=== PATIENT | male | born 1980 | race Caucasian/White ===

== ENCOUNTER 2022-09-23 08:04 | Outpatient (OUT) | payer OTHER, BC, SELFPAY ==
--- NOTE | 2022-09-23 08:16 | CT_ITS ---
[address] [address] Patient Name: MALLORY BRENNAN MRN: [id number] date: 1980 Sex: M Assigned Patient Location: CT Current Patient Location: CT Accession/Order Number: [id number] Exam Date: 09/23/2022 08:20 Report Date: 09/23/2022 08:57 At the request of: NON-STAFF PHYSICIAN Procedure: CT lumbar spine wo con EXAMINATION: CT lumbar spine wo con HISTORY: Lumbar Radiculopathy M54.16, Degenerative Disc Disease M51.9 COMPARISON: No relevant comparison available. TECHNIQUE: Axial, Coronal, and Sagittal CT images were created without I.V. contrast material. Dose reduction techniques were achieved by using automated exposure control and/or adjustment of mA and/or kV according to patient size and/or use of iterative reconstruction technique. FINDINGS: PARASPINAL AREA: Normal with no visible mass. Bilateral nonobstructing nephrolithiasis BONES: Normal alignment with no acute fracture or spondylolisthesis. Minimal degenerative spondylosis. DISC LEVELS: 12-L1: No significant disc/facet abnormality, spinal stenosis, or foraminal stenosis. L1-L2: No significant disc/facet abnormality, spinal stenosis, or foraminal stenosis. L2-L3: No significant disc/facet abnormality, spinal stenosis, or foraminal stenosis. L3-L4: No significant disc/facet abnormality, spinal stenosis, or foraminal stenosis. L4-L5: No significant disc/facet abnormality, spinal stenosis, or foraminal stenosis. L5-S1: moderate disc space narrowing. Posterior broad-based disc herniation the protrusion type extending 3.7 mm. No central or foraminal stenosis CT/CT lumbar spine wo con IMPRESSION: Broad-based disc herniation the protrusion type at L5-S1. No definite central or foraminal stenosis Electronically authenticated by: BERNADINE FISHER Date: 09/23/2022 08:57
--- NOTE | 2022-09-23 08:20 | XR_ITS ---
The [address] [address] Patient Name: MALLORY BRENNAN MRN: [id number] date: 1980 Sex: M Assigned Patient Location: CT Current Patient Location: CT Accession/Order Number: [id number] Exam Date: 09/23/2022 08:27 Report Date: 09/23/2022 08:58 At the request of: NON-STAFF PHYSICIAN Procedure: XR lumbar spine 2-3V EXAMINATION: XR lumbar spine 2-3V HISTORY: Lumbar Radiculopathy M54.18, Degenerative Disc Disease M51.9 COMPARISON: No relevant comparison available. FINDINGS: BONES: Neutral projection demonstrates normal alignment with no acute fracture or spondylolisthesis. Mild degenerative spondylosis DISC SPACES: Disc space narrowing L5-S1 PARASPINOUS: Negative. No paraspinous abnormality is seen. OTHER: No transient spondylolisthesis with flexion or extension XR/XR lumbar spine 2-3V IMPRESSION: Disc space narrowing L5-S1 with no dynamic instability Electronically authenticated by: BERNADINE FISHER Date: 09/23/2022 08:58
== END 2022-09-23 08:05 | disposition home or self-care (01) ==
LOC: CT 08:06
PROVIDERS: PCP Family Medicine
DX: M54.16 Radiculopathy, lumbar region (principal); M51.9 Unspecified thoracic, thoracolumbar and lumbosacral intervertebral disc disorder; M51.26 Other intervertebral disc displacement, lumbar region
CPT/HCPCS: 72100; 72131

== ENCOUNTER 2022-11-04 08:23 | Outpatient (OUT) | payer OTHER, BC, SELFPAY ==
--- NOTE | 2022-11-04 08:56 | PM.CN ---
Consult Note: HPI Data of Consult Patient: known to practice within the last 3 years Requesting Physician: KYE FRAGA NP Primary Care Provider: Landon Borden MD Consult Narrative Reason for consult: low back, right buttock/thigh pain Narrative: Wilton Davila a pleasant 42 year old male presents for follow up on chronic low back pain with right sided radiculopathy. Patient stopped taking baclofen felt it was not beneficial and made him feel groggy. Patient has benefited from ESIs in the past and feels it is still beneficial at this time but may be wearing off. 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 Today pain is 2/10 in low back, right buttock, and right upper leg. cc:: CC: KYE FRAGA NP Review of Systems ROS Status of ROS 10 or more systems reviewed and unremarkable except as noted in history and below Musculoskeletal Reports: back pain and other (muscle spasms) Exam Constitutional Documenting provider has reviewed patient's vital signs: yes Common normals: no apparent distress, oriented x3, healthy appearing, alert and well nourished General appearance: cooperative HENRI Common normals: normocephalic, hearing grossly normal bilaterally and moist oral mucous membranes Head and scalp: normocephalic Eye Common normals: PERRL Pupil: PERRL Neck & C-Spine Common normals: full ROM General: normal visual inspection Chest Common normals: inspection of chest normal Respiratory Common normals: normal respiratory effort, no retractions and no use of accessory muscles Back & Pelvis Lumbar spine/lower back: pain with ROM, lumbar spinal tenderness and straight leg raise positive right Sacroiliac joints: SI joint(s) abnormal (tenderness to Right SIJ, positive DENIS and thigh thrust) Extremity Common normals: normal to inspection and full ROM Neuro Common normals: oriented x3, CN's II-XII intact bilaterally, moves all extremities, no focal motor deficits, no sensory deficits noted, deep tendon reflexes 2+ bilaterally and gait normal Sensorium/orientation: alert Motor exam: strength 5/5 throughout and no movement abnormalities noted Psych Common normals: mental status grossly normal, thought process normal, cooperative, affect normal, speech normal and activity/motor behavior normal Speech: normal speech Thought process: normal thought process Results Additional Findings Additional findings: I have checked an [facility] report on this patient today and there are no aberrancies noted in the prescribing history.?? A drug screen was completed and reviewed within the last year, and if there has not been a drug screen completed we ordered one today to monitor higher risk, state monitored pain medication use. As part of providing excellent, safe, comprehensive care, the following was completed at our patient's visit: 1. A medication reconciliation and review to ensure accurate knowledge of current/active medications, including asking our patients to inform us about any [id number] medications or herbal remedies/nutritional supplements/alternative remedies. 2. A review to specifically ensure our patients have had annual screening for: elevated body mass index (BMI), tobacco use, screening for depression, and screening for unhealthy alcohol use. When screening is concerning, patients are provided with education and the specific recommendation to discuss the concerning health issue and treatment options with their primary care provider. Assessment and Plan Assessment and Plan (1) Lumbar radiculopathy: (2) Muscle spasm: Plan followed with neurosurgeon, thought he could benefit from surgery patient not interested at this time declining alternative muscle relaxant declining topical cream declining TENS f/u in 3 months, call sooner if would like to repeat lumbar l5/s1 KRUPA for lumbar radiculopathy
== END 2022-11-04 08:24 | disposition home or self-care (01) ==
PROVIDERS: PCP Family Medicine; Visit Provider Nurse Practitioner
DX: M54.16 Radiculopathy, lumbar region (principal); M62.838 Other muscle spasm
CPT/HCPCS: G0463

== ENCOUNTER 2023-07-28 16:16 | Outpatient (OUT) | payer OTHER, SELFPAY ==
[2023-07-28 16:52] LABS: Basophils Absolute Auto 0.1 10^3/uL (0.0-0.1); Basophils Percent Auto 0.9 % (0.2-2.0); Eosinophils Absolute Auto 0.1 10^3/uL (0.0-0.7); Eosinophils Percent Auto 1.9 % (0.9-7.0); Hematocrit 45.2 % (42.0-54.0); Hemoglobin 15.5 g/dL (14.0-18.0); Immature Granulocytes Abs Auto 0.01 10^3/uL (0.00-0.03); Immature Granulocytes Pct Auto 0.2 % (0.0-0.5); Lymphocytes Absolute Auto 2.3 10^3/uL (1.2-3.8); Lymphocytes Percent Auto 35.4 % (20.5-60.0); Mean Corpuscular HGB Conc 34.3 g/dL (29.9-35.2); Mean Corpuscular Hemoglobin 30.5 pg (25.9-34.0); Mean Corpuscular Volume 88.8 fL (80.0-94.0); Mean Platelet Volume 10.2 fL (9.5-13.5); Monocytes Absolute Auto 0.7 10^3/uL (0.3-0.8); Monocytes Percent Auto 10.7 % (1.7-12.0); Neutrophils Absolute Auto 3.3 10^3/uL (1.4-6.5); Neutrophils Percent Auto 50.9 % (43.0-75.0); Platelet Count 256 10^3/uL (150-450); Red Blood Count 5.09 10^6/uL (4.70-6.10); Red Cell Distribution Width 12.8 % (11.0-15.0); White Blood Count 6.4 10^3/uL (4.0-11.0)
[2023-07-28 17:13] LABS: Alanine Aminotransferase 67 U/L (16-63); Albumin Globulin Ratio 1.1; Albumin Level 3.9 g/dL (3.4-5.0); Alkaline Phosphatase 57 U/L (46-116); Anion Gap 15.1; Aspartate Amino Transferase 25 U/L (15-37); BUN Creatinine Ratio 24.3; Bilirubin Direct 0.1 mg/dL (0.0-0.2); Bilirubin Total 0.4 mg/dL (0.2-1.0); Calcium 9.3 mg/dL (8.5-10.1); Carbon Dioxide 25.8 mmol/L (21.0-32.0); Chloride 102 mmol/L (98-107); Chol HDL Ratio 4.6; Cholesterol 232 mg/dL (<=200); Estimated Average Glucose 105 mg/dL; Estimated GFR (African America >60 (>=60); Estimated GFR (Non-African Ame >60 (>=60); Globulin 3.6 g/dL; Glucose 90 mg/dL (74-106); Glycohemoglobin A1C 5.3 % (4.5-6.2); HDL Cholesterol 50 mg/dL (40-60); Potassium 3.9 mmol/L (3.5-5.1); Sodium 139 mmol/L (136-145); Thyroid Stimulating Hormone 4.357 uIU/mL (0.358-3.740); Total Protein 7.5 g/dL (6.4-8.2); Triglycerides 120 mg/dL (<=150)
[2023-07-28 18:02] LABS: Prostate Specific Antigen Scrn 0.51 ng/mL (<=4.00)
[2023-07-30 03:09] LABS: Testosterone 560 ng/dL (264-916)
== END 2023-07-28 16:17 | disposition home or self-care (01) ==
LOC: LAB 16:18
PROVIDERS: PCP Family Medicine; Visit Provider Family Medicine
DX: Z00.00 Encounter for general adult medical examination without abnormal findings (principal)
CPT/HCPCS: 36415; 80048; 80061; 80076; 83036; 84403; 84443; 85025; G0103

== ENCOUNTER 2024-05-03 15:08 | Outpatient (OUT) | payer BC, SELFPAY ==
--- OUTSIDE RECORDS SUMMARY | 2024-05-03 15:30 | XMS_ITS | CCD ---
Author Organization [facility] Care Team Providers Care Programming Instructor Name Role Phone Diaz Bowser Admitting Unavailable Diaz Bowser Attending Unavailable NADERELANDON Luna Referring Unavailable NADERECheryl, LANDON Primary Care Unavailable KRISTELMARISELA DE LA CRUZ Attending Unavailable SHANIA VARGAS Referring Unavailable NADERER, LANDON Primary Care Unavailable AHMED, ENOC Admitting Unavailable NADERER, DR LANDON Paris Attending Unavailable NADERER, DR LANDON Paris Primary Care Unavailable NADERER, DR LANDON Paris Admitting Unavailable LAKSHMIPATHY ., NARENDRANATH Attending Brianna vailable LAKSHMIPATHY ., NARENDRANATH Admitting Brianna vailable NADERECheryl, DR LANDON Paris Primary Care Unavailable NADERER, DR LANDON Paris Primary Care Unavailable LAKSHMIPATHY ., NARENDRANATH Admitting Brianna vailable LAKSHMIPATHY ., NARENDRANATH Consulting Brianna vailable LAKSHMIPATHY ., NARENDRANATH Attending Brianna vailable LAKSHMIPATHY ., NARENDRANATH Consulting Brianna vailable LAKSHMIPATHY ., NARENDRANATH Attending Brianna vailable LAKSHMIPATHY ., NARENDRANATH Admitting Brianna vailable NADERER, DR LANDON Paris Primary Care Unavailable LAKSHMIPATHY ., NARENDRANATH Consulting Brianna vailable LAKSHMIPATHY ., NARENDRANATH Attending Brianna vailable LAKSHMIPATHY ., NARENDRANATH Admitting Brianna vailable NADERER, DR LANDON Paris Primary Care Unavailable NADERECheryl, DR LANDON Paris Primary Care Unavailable LAKSHMIPATHY ., NARENDRANATH Admitting Brianna vailable LAKSHMIPATHY ., NARENDRANATH Consulting Brianna vailable LAKSHMIPATHY ., NARENDMOODY Attending Brianna vailable NADERECheryl, DR LANDON Paris Primary Care Unavailable PAY ., DR MELVIN Consulting Unavailable PAY ., DR MELVIN Attending Unavailable PAY ., DR MELVIN Admitting Unavailable NADERER, DR LANDON Paris Primary Care Unavailable NADERER, DR LANDON Paris Admitting Unavailable NADERER, DR LANDON aPris Attending Unavailable NADERER, DR LANDON Paris Primary Care Unavailable NADERER, DR LANDON Paris Attending Unavailable NADERER, DR LANDON Paris Admitting Unavailable NADERER, DR LANDON Paris Primary Care Unavailable KAROLYN, DIAZ Consulting Unavailable KAROLYN, DIAZ Attending Unavailable KAROLYN, DIAZ Admitting Unavailable NADERER, DR LANDON Paris Primary Care Unavailable NADERER, DR LANDON Paris Consulting Unavailable NADERER, DR LANDON Paris Attending Unavailable NADERER, DR LANDON Paris Admitting Unavailable NADERER, DR LANDON Paris Primary Care Unavailable NADERER, DR LANDON Paris Attending Unavailable NADERER, DR LANDON Paris Admitting Unavailable ZIEBER, DR HOWARD Luna Consulting Unavailable NADERER, DR LANDON Paris Consulting Unavailable NADERER, DR LANDON Paris Primary Care Unavailable NADERER, DR LANDON Paris Admitting Unavailable NADERER, DR LANDON Paris Attending Unavailable MARS HILL, BERNADINE Consulting Unavailable NADERER, DR LANDON Paris Consulting Unavailable Carolynn Hernandez Unavailable Landon Galvez MD Primary Care Unavail able Ickes PA-C, Shasta Murillo Attending Unav ailable Landon Galvez MD Primary Care Unavail able Ickes PA-C, Shasta Murillo Attending Unav ailable Ickes PA-C, Shasta Murillo Attending Unav ailable Suha BLAKE, Landon Limon Primary Care Unavail able MD Landon Galvez Primary Care Provider DO Rodo Prado Emergency Provider Suha BLAKE, Landon Primary Care Provider SHANIA STOUT Attending Unavailable PROVIDER, CONVERSION Primary Care Unavailable SHANIA STOUT Attending Unavailable PROVIDER, CONVERSION Primary Care Unavailable SHANIA STOUT Attending Unavailable PROVIDER, CONVERSION Primary Care Unavailable Rodo Prado Attending Unavailable Suha, Landon Primary Care Unavailable Rodo Prado Admitting Unavailable Emory Rodriguez Admitting Unavailab le Emory Rodriguez Attending Unavailab le EstelitaereLandon luna Primary Care Unavailable KAROLYN, DIAZ Referring Unavailable KOURTNEY, KIKA Referring Unavailable KAROLYN, DIAZ Referring Unavailable KOURTNEY, KIKA Referring Unavailable KOURTNEY, KIKA Referring Unavailable KOURTNEY, KIKA Referring Unavailable KOURTNEY, KIKA Referring Unavailable KOURTNEY, KIKA Referring Unavailable KOURTNEY, KIKA Referring Unavailable KAROLYN, DIAZ Referring Unavailable KAROLYN, DIAZ Referring Unavailable KAROLYN, DIAZ Referring Unavailable KAROLYN, DIAZ Referring Unavailable KAROLYN, DIAZ Referring Unavailable NADERER, LANDON Attending Unavailable NADERER, LANDON Attending Unavailable NADERER, LANDON Attending Unavailable NADERER, LANDON Attending Unavailable Allergies Allergy Classification Reported Allergen(s) Allergy Type Date of Onset Reaction(s) Facility (1 source) No Known Medication Allergies; Translations: [No Known Medication Allergies] Propensity to adverse reactions to drug (disorder) [facility] Repository Medications Current Medications Medication Drug Class(es) Dates Sig (Normalized) Sig (Original) acetaminophen 325 mg / butalbital 50 mg / caffeine 40 mg oral tablet (18 sources) Barbiturate, Central Nervous System Stimulant, Methylxanthine Start: 05-25-2023 take 1 tablet by mouth every six hours for headache butalbital-acetam inophen-caffeine 50-325-40 MG tablet Indications: Migraine without aura and without status migrainosus, not intractable (CMS/HCC) Take 1 tablet by mouth every 6 (six) hours if needed for headaches 30 tablet 1 05/25/2023 Active acetaminophen 325 mg / HYDROcodone bitartrate 10 mg oral tablet (11 sources) Opioid Agonist Start: 04-11-2024 End: 04-26-2024 take 1 tablet by mouth four times daily as needed for pain HYDROcodone-aceta minophen ([place]) 10-325 MG tablet Indications: DDD (degenerative disc disease), lumbar Take 1 tablet by mouth 4 (four) times a day as needed for severe pain for up to 15 days 60 tablet 04/11/2024 04/26/2024 Active Start: 03-12-2024 End: 03-29-2024 take 1 tablet by mouth four times daily as needed for pain HYDROcodone-acetaminophen ([place]) 10-325 MG tablet Indications: DDD (degenerative disc disease), lumbar Take 1 tablet by mouth 4 (four) times a day as needed for severe pain for up to 15 days 60 tablet 03/12/2024 03/29/2024 Active Start: 02-09-2024 End: 02-16-2024 take 1 tablet by mouth four times daily as needed for pain HYDROcodone-acetaminophen ([place]) 10-325 MG tablet Indications: DDD (degenerative disc disease), lumbar Take 1 tablet by mouth 4 (four) times a day as needed for severe pain for up to 7 days 28 tablet 02/09/2024 02/16/2024 Active Start: 01-10-2024 End: 01-17-2024 take 1 tablet by mouth four times daily as needed for pain HYDROcodone-acetaminophen ([place]) 10-325 MG tablet Indications: DDD (degenerative disc disease), lumbar Take 1 tablet by mouth 4 (four) times a day as needed for severe pain for up to 7 days 28 tablet 01/10/2024 01/17/2024 Active Start: 12-02-2023 End: 12-09-2023 take 1 tablet by mouth four times daily as needed for pain HYDROcodone-acetaminophen ([place]) 10-325 MG tablet Indications: DDD (degenerative disc disease), lumbar Take 1 tablet by mouth 4 (four) times a day as needed for severe pain for up to 7 days 28 tablet 12/02/2023 12/09/2023 Active Start: 11-01-2023 End: 11-08-2023 take 1 tablet by mouth four times daily as needed for pain HYDROcodone-acetaminophen ([place]) 10-325 MG tablet Indications: DDD (degenerative disc disease), lumbar Take 1 tablet by mouth 4 (four) times a day as needed for severe pain for up to 7 days 28 tablet 11/01/2023 11/08/2023 Active ALPRAZolam 0.5 mg oral tablet (10 sources) Benzodiazepine Start: 04-30-2024 End: 05-10-2024 take 1 tablet by mouth three times daily as needed for anxiety ALPRAZolam (Xanax) 0.5 MG tablet Indications: Generalized anxiety disorder (CMS/HCC) Take 1 tablet (0.5 mg) by mouth 3 (three) times a day as needed for anxiety for up to 10 days 30 tablet 04/30/2024 05/10/2024 Active Start: 03-29-2024 End: 04-30-2024 take 1 tablet by mouth three times daily as needed for anxiety ALPRAZolam (Xanax) 0.25 MG tablet Indications: Generalized anxiety disorder (CMS/HCC) Take 1 tablet (0.25 mg) by mouth 3 (three) times a day as needed for anxiety for up to 10 days 30 tablet 03/29/2024 04/30/2024 Discontinued (Reorder) azithromycin 250 mg oral tablet (8 sources) Macrolide Antimicrobial Start: 03-29-2024 End: 04-30-2024 take 2 tablets by mouth once daily azithromycin (Zithromax) 250 MG tablet Indications: Acute bronchitis due to other specified organisms 2 PO once a day on day #1, then 1 PO daily on days 2-5 6 tablet 03/29/2024 04/30/2024 Discontinued 24 hr buPROPion hydrochloride 300 mg extended release oral tablet (16 sources) Aminoketone Start: 03-23-2024 take 1 tablet by mouth once daily buPROPion XL (Wellbutrin XL) 300 MG 24 hr tablet Indications: Major depressive disorder, recurrent episode, moderate (CMS/HCC) Take 1 tablet (300 mg) by mouth Daily Do not crush, chew, or split. 30 tablet 5 03/23/2024 Active Start: 12-13-2023 End: 03-23-2024 take 1 tablet by mouth once daily buPROPion XL (Wellbutrin XL) 150 MG 24 hr tablet Indications: Major depressive disorder, recurrent episode, moderate (CMS/HCC) Take 1 tablet (150 mg) by mouth Daily Do not crush, chew, or split. 30 tablet 3 12/13/2023 03/23/2024 Discontinued (Reorder) levothyroxine sodium 0.075 mg oral tablet (20 sources) l-Thyroxine Start: 07-28-2023 End: 03-12-2024 take 1 tablet by mouth before mealtime levothyroxine (Synthroid) 75 MCG tablet Indications: Adult hypothyroidism (CMS/HCC) Take 1 tablet (75 mcg) by mouth in the morning. Take before meals. 30 tablet 3 03/12/2024 Active mirtazapine 30 mg oral tablet (10 sources) Start: 01-17-2024 End: 04-30-2024 take 1 tablet by mouth at bedtime mirtazapine (Remeron) 30 MG tablet Take 30 mg by mouth at bedtime 01/17/2024 04/30/2024 Discontinued omeprazole 40 mg delayed release oral capsule (19 sources) Proton Pump Inhibitor Start: 03-15-2023 take 1 capsule by mouth once daily omeprazole (PriLOSEC) [address] capsule Indications: Gastroesophageal reflux disease without esophagitis TAKE 1 CAPSULE BY MOUTH EVERY DAY 90 capsule 3 03/15/2023 Active take 1 capsule by mouth once isaias ly Omeprazole 40 MG 1 capsule 30 minutes before morning meal Orally Once a day Active sertraline 25 mg oral tablet (4 sources) Serotonin Reuptake Inhibitor Start: 07-28-2023 End: 12-13-2023 take 1 tablet by mouth once daily sertraline (Zoloft) 25 MG tablet Indications: Generalized anxiety disorder (CMS/HCC) TAKE ONE TABLET BY MOUTH DAILY 30 tablet 2 07/28/2023 12/13/2023 Discontinued 1 ml testosterone cypionate 200 mg/ml injection (20 sources) Androgen Start: 10-06-2023 End: 03-08-2024 inject 0.5 mL by intramuscular injection every other week testosterone cypionate (Depo-Testosterone) 200 MG/ML injection Indications: Testicular hypofunction INJECT 0.5ML INTRAMUSCULARLY ONCE EVERY 2 WEEKS 2 mL 2 03/08/2024 Active traZODone hydrochloride 100 mg oral tablet (19 sources) Serotonin Reuptake Inhibitor Start: 03-19-2024 take 1 tablet by mouth once daily at bedtime traZODone (Desyrel) 100 MG tablet Indications: Primary insomnia TAKE 1 TABLET BY MOUTH EVERYDAY AT BEDTIME 90 tablet 3 03/19/2024 Active Start: 02-17-2023 take 1 tablet by zully th once daily at bedtime traZODone (Desyrel) 100 MG tablet Indications: Primary insomnia TAKE 1 TABLET BY MOUTH EVERYDAY AT BEDTIME 90 tablet 3 02/17/2023 Active take 1 tablet by zully th once daily at bedtime traZODone HCl 100 MG TAKE 1 TABLET BY MOUTH EVERYDAY AT BEDTIME Oral for 90 Days Active valACYclovir 1000 mg oral tablet (19 sources) Herpesvirus Nucleoside Analog DNA Polymerase Inhibitor, Herpes Simplex Virus Nucleoside Analog DNA Polymerase Inhibitor, Herpes Zoster Virus Nucleoside Analog DNA Polymerase Inhibitor Start: 06-14-2023 take 1 tablet by mouth once daily valACYclovir (Valtrex) 1 g tablet Indications: Herpesviral infection of other male genital organs , Genital herpes TAKE 1 TABLET BY MOUTH EVERY DAY 90 tablet 3 06/14/2023 Active valACYclovir HCl 1 GM Oral for 90 Days Active Completed/Discontinued Medications Medication Drug Class(es) Dates Sig (Normalized) Sig (Original) hydrOXYzine hydrochloride 25 mg oral tablet (15 sources) Antihistamine End: 03-29-2024 take 1 tablet by mouth four times daily as needed hydrOXYzine HCl (Atarax) 25 MG tablet TAKE 1 TABLET BY MOUTH FOUR TIMES A DAY NEEDED 03/29/2024 Discontinued take 1 tablet by zully th every twenty-four hours hydrOXYzine HCl 25 MG 1 tablet at bedtim e as needed Orally Once a day Active Problems Active Problems Problem Classification Problem Date Documented Date Episodic/Chronic Acute bronchitis (9 sources) Acute infective bronchitis; Translations: [Acute bronchitis due to other specified organisms] Onset: 03-29-2024 Resolved: 04-30-2024 03-29-2024 Episodic Anxiety disorders (20 sources) Generalized anxiety disorder; Translations: [Generalized anxiety disorder] Onset: 07-05-2023 07-05-2023 Chronic Cardiac dysrhythmias (20 sources) Unspecified atrial fibrillation; Translations: [Paroxysmal atrial fibrillation] Onset: 02-10-2022 07-05-2023 Chronic Disorders of lipid metabolism (18 sources) Dyslipidemia; Translations: [Hyperlipidemia, unspecified] Onset: 07-05-2023 07-05-2023 Chronic Esophageal disorders (19 sources) Gastro-esophageal reflux disease without esophagitis; Translations: [Gastroesophageal reflux disease without esophagitis] Onset: 02-10-2022 07-05-2023 Chronic Headache; including migraine (18 sources) Migraine without aura, not refractory ; Translations: [Migraine without aura, not intractable, without status migrainosus] Onset: 05-25-2023 05-25-2023 Chronic Mood disorders (20 sources) Moderate recurrent major depression; Translations: [Major depressive disorder, recurrent, moderate] Onset: 07-05-2023 12-13-2023 Chronic Nutritional deficiencies (18 sources) Vitamin D deficiency; Translations: [Vitamin D deficiency, unspecified] Onset: 07-05-2023 07-05-2023 Chronic Other connective tissue disease (1 source) Other muscle spasm; Translations: [OTHER MUSCLE SPASM] Onset: 06-28-2022 Episodic Other connective tissue disease (1 source) Neuralgia and neuritis, unspecified; Translations: [NEURALGIA AND NEURITIS UNSPECIFIED] Onset: 05-30-2022 Episodic Other endocrine disorders (18 sources) Male hypogonadism; Translations: [Testicular hypofunction] Onset: 07-05-2023 07-05-2023 Chronic Other endocrine disorders (2 sources) Testicular hypofunction; Translations: [Testicular hypofunction] 11-22-2023 Chronic Other nervous system disorders (5 sources) Other chronic pain; Translations: [OTHER CHRONIC PAIN] Onset: 05-30-2022 Chronic Other nervous system disorders (4 sources) Other specified mononeuropathies of right lower limb; Translations: [OTH SPEC MONONEUROPATH RT LOW LIMB] Onset: 06-08-2022 Chronic Other non-traumatic joint disorders (4 sources) Pain in right hip; Translations: [PAIN IN RIGHT HIP] Onset: 05-27-2022 Episodic Other nutritional; endocrine; and metabolic disorders (1 source) Obesity, unspecified; Translations: [OBESITY UNSPECIFIED] Onset: 02-10-2022 Chronic Other nutritional; endocrine; and metabolic disorders (1 source) Body mass index (BMI) 30.0-30.9, adult; Translations: [BODY MASS INDEX BMI 30.0-30.9 ADULT] Onset: 02-10-2022 Chronic Other upper respiratory infections (2 sources) Acute pharyngitis, unspecified; Translations: [Acute upper respiratory infection, unspecified] Episodic Residual codes; unclassified (4 sources) Obstructive sleep apnea (adult) (pediatric); Translations: [OBSTRUCTIVE SLEEP APNEA] Onset: 07-21-2021 Chronic Residual codes; unclassified (1 source) Idiopathic hypersomnia with long sleep time; Translations: [IDIO HYPERSOMNIA W/LONG SLEEP TIME] Onset: 07-24-2021 Chronic Residual codes; unclassified (18 sources) Obstructive sleep apnea syndrome; Translations: [Obstructive sleep apnea (adult) (pediatric)] Onset: 07-05-2023 07-05-2023 Chronic Residual codes; unclassified (20 sources) Persistent insomnia; Translations: [Insomnia, unspecified] Onset: 07-05-2023 07-05-2023 Episodic Spondylosis; intervertebral disc disorders; other back problems (20 sources) Other intervertebral disc displacement, lumbar region; Translations: [Other intervertebral disc degeneration, lumbar region] Onset: 05-04-2022 Chronic Spondylosis; intervertebral disc disorders; other back problems (6 sources) Radiculopathy, lumbar region; Translations: [Lumbago with sciatica, right side] Onset: 02-10-2022 Episodic Substance-related disorders (1 source) Nicotine dependence, cigarettes, uncomplicated; Translations: [NICOTINE DEPEND CIGARETTES UNCOMP] Onset: 02-10-2022 Chronic Suicide and intentional self-inflicted injury (1 source) Suicidal ideations; Translations: [Suicidal ideations] Onset: 12-12-2023 Episodic Thyroid disorders (20 sources) Hypothyroidism; Translations: [Hypothyroidism, unspecified] Onset: 07-28-2023 07-28-2023 Chronic Unclassified (3 sources) LOW BACK PAIN, UNSPECIFIED; Translations: [LOW BACK PAIN, UNSPECIFIED] Onset: 04-27-2022 Unclassified (1 source) CONTACT W/AND (SUSP) EXPOS COVID-19; Translations: [CONTACT W/AND (SUSP) EXPOS COVID-19] Onset: 08-17-2021 Viral infection (18 sources) Herpesviral infection of other male genital organs; Translations: [Genital herpes, unspecified] Onset: 07-05-2023 07-05-2023 Chronic Past or Other Problems Problem Classification Problem Date Documented Da te Episodic/Chronic Cardiac dysrhythmias (2 sources) Palpitations; Translations: [Palpitations] Onset: 06-29-2023 Episodic Malaise and fatigue (4 sources) Other fatigue; Translations: [OTHER FATIGUE] Onset: 10-13-2021 Episodic Other aftercare (1 source) Other [facility] (current) drug therapy; Translations: [OTH [facility] CURRENT DRUG THERAPY] Onset: 02-10-2022 Episodic Unclassified (1 source) LOW BACK PAIN, UNSPECIFIED; Translations: [LOW BACK PAIN, UNSPECIFIED] Onset: 03-07-2022 Results Test Name Value Interpretation Reference Range Facility Bacteria [Presence] in Urine by AutomatedOrdered By: PROVIDER TEMP on 12-12-2023 Bacteria Auto Ql (U) Rare [HPF] None Seen [facility] Bilirubin Test strip Ql (U)O rdered By: PROVIDER TEMP on 12-12-2023 Bilirubin Ql (U) Negative Negative [facility] Color of Urine by AutoOrdere d By: PROVIDER TEMP on 12-12-2023 Color (U) Light-yellow Normal Yellow [facility] Comment on above: Order Comment: Name Collection Type:: Clean-Voided Midstream Performed By: #### A DDONUAPLUS #### [address] Crystals.amorphous [Presence ] in Urine by Computer assisted methodOrdered By: PROVIDER TEMP on 12-12-2023 Crystals.amorphous Computer assisted Ql (U) 1+ [HPF] [facility] Dipstick and Microscopicon 1 Amorphous Crystal,Urine 1+ Normal [facility] Comment on above: Order Comment: Name Collection Type:: Clean-Voided Midstream Performed By: #### A DDONUAPLUS #### [address] Bacteria,Urine Rare Normal None Seen [facility] Comment on above: Order Comment: Name Collection Type:: Clean-Voided Midstream Performed By: #### A DDONUAPLUS #### [place] [address] [place] Bilirubin,Urine Negative Normal Negative [facility] Comment on above: Order Comment: Name Collection Type:: Clean-Voided Midstream Performed By: #### A DDONUAPLUS #### [address] Glucose Ql (U) Normal Normal Normal [facility] Comment on above: Order Comment: Name Collection Type:: Clean-Voided Midstream Performed By: #### A DDONUAPLUS #### [place] [address] [place] Hyaline Casts,Urine None Normal 0-8 [facility] Comment on above: Order Comment: Name Collection Type:: Clean-Voided Midstream Performed By: #### A DDONUAPLUS #### [place] [address] [place] Mucus,Urine Rare Normal [facility] Comment on above: Order Comment: Name Collection Type:: Clean-Voided Midstream Result Comment: PERF ORMED BY: [address] [place] [address] PATHOLOGIST SAMPLE TESTER GRINDER OSVALDO RODRIGUEZ M.D. Performed By: #### A DDONUAPLUS #### [place] [address] [place] Nitrite,Urine Negative Normal Negative [facility] Comment on above: Order Comment: Name Collection Type:: Clean-Voided Midstream Performed By: #### A DDONUAPLUS #### [place] [address] [place] Occult Blood,Urine Negative Normal Negative [facility] Comment on above: Order Comment: Name Collection Type:: Clean-Voided Midstream Result Comment: PERF ORMED BY: [place] [address] PATHOLOGIST SAMPLE TESTER GRINDER OSVALDO RODRIGUEZ M.D. Performed By: #### A DDONUAPLUS #### [place] [address] [place] Protein,Urine Negative Normal Negative [facility] Comment on above: Order Comment: Name Collection Type:: Clean-Voided Midstream Performed By: #### A DDONUAPLUS #### [place] [address] [place] RBC,Urine 1-2 Normal 0-4 [facility] Comment on above: Order Comment: Name Collection Type:: Clean-Voided Midstream Performed By: #### A DDONUAPLUS #### [place] [address] [place] Specificy Maynard,Urine 1.019 Normal 1.001-1.030 [facility] Comment on above: Order Comment: Name Collection Type:: Clean-Voided Midstream Performed By: #### A DDONUAPLUS #### [place] [address] [place] Urobilinogen,Urine Normal Normal Normal [facility] Comment on above: Order Comment: Name Collection Type:: Clean-Voided Midstream Performed By: #### A DDONUAPLUS #### [place] [address] [place] WBC,Urine 1-2 Normal 0-4 [facility] Comment on above: Order Comment: Name Collection Type:: Clean-Voided Midstream Performed By: #### A DDONUAPLUS #### [address] Drug Screen,Urineon 12-12-19 24 Amphetamine Screen,Urine Negative Normal Negative [facility] Comment on above: Performed By: #### U RDS #### [address] Barbiturate Screen,Urine Positive High Negative [facility] Comment on above: Performed By: #### U RDS #### [address] Benzodiazepines Screen,Urine Negative Normal Negative [facility] Comment on above: Performed By: #### U RDS #### [address] Cannabinoid Screen,Urine Negative Normal Negative [facility] Comment on above: Result Comment: Thes e are unconfirmed results and should not be used for legal purposes. Drug Cut-Off Concentration: AMPH 1000 ng/mL QIAN 200 ng/mL LUIS 200 ng/mL COCM 300 ng/mL OP 300 ng/mL PCP 25 ng/mL THC 20 ng/mL PERFORMED BY: [place] [address] PATHOLOGIST SAMPLE TESTER GRINDER OSVALDO RODRIGUEZ M.D. Performed By: #### U RDS #### [address] Cocaine Screen,Urine Negative Normal Negative [facility] Comment on above: Performed By: #### U RDS #### [address] Opiate Screen,Urine Negative Normal Negative [facility] Comment on above: Performed By: #### U RDS #### [address] Phencyclidine Screen,Urine Negative Normal Negative [facility] Comment on above: Performed By: #### U RDS #### [address] Epithelial cells.squamous [# /area] in Urine sediment by Automated countOrdered By: PROVIDER TEMP on 12-12-2023 Epithelial cells.squamous Auto (Urine sed) [#/Area] N/A [facility] Erythrocytes [#/area] in Uri ne sediment by Automated countOrdered By: PROVIDER TEMP on 12-12-2023 RBC Auto (Urine sed) [#/Area] 1-2 [HPF] 0-4 [facility] Glucose [Mass/volume] in Uri ne by Test stripOrdered By: PROVIDER TEMP on 12-12-2023 Glucose Test strip (U) [Mass/Vol] Normal mg/dL Normal [facility] Hemoglobin Test strip Ql (U) Ordered By: PROVIDER TEMP on 12-12-2023 Hemoglobin Ql (U) Negative Negative [facility] Hyaline casts [#/area] in Ur ine sediment by Automated countOrdered By: PROVIDER TEMP on 12-12-2023 Hyaline casts Auto (Urine sed) [#/Area] None [LPF] 0-8 [facility] Ketones [Presence] in Urine by Test stripOrdered By: PROVIDER TEMP on 12-12-2023 Ketones Ql (U) Negative Normal Negative [facility] Comment on above: Order Comment: Name Collection Type:: Clean-Voided Midstream Performed By: #### A DDONUAPLUS #### [facility] [address] [place] [address] [place] Leukocyte esterase [Presence ] in Urine by Test stripOrdered By: PROVIDER TEMP on 12-12-2023 Leukocyte esterase Test strip Ql (U) Negative Normal Negative [facility] Comment on above: Order Comment: Name Collection Type:: Clean-Voided Midstream Performed By: #### A DDONUAPLUS #### [facility] [address] [place] [address] [place] Leukocytes [#/area] in Urine sediment by Automated countOrdered By: PROVIDER TEMP on 12-12-2023 WBC Auto (Urine sed) [#/Area] 1-2 [HPF] 0-4 [facility] Mucus [Presence] in Urine by AutomatedOrdered By: PROVIDER TEMP on 12-12-2023 Mucus Auto Ql (U) Rare [LPF] [facility] Nitrite Test strip Ql (U)Ord ered By: PROVIDER TEMP on 12-12-2023 Nitrite Ql (U) Negative Negative [facility] Protein Test strip (U) [Mass /Vol]Ordered By: PROVIDER TEMP on 12-12-2023 Protein (U) [Mass/Vol] Negative Negative [facility] Specific gravity Test strip (U) [Rel density]Ordered By: PROVIDER TEMP on 12-12-2023 Specific gravity (U) [Rel density] 1.019 1.001-1.030 [facility] Urine appearanceOrdered By: PROVIDER TEMP on 12-12-2023 Appearance (U) Cloudy Critically abnormal Clear [facility] Comment on above: Order Comment: Name Collection Type:: Clean-Voided Midstream Performed By: #### A DDONUAPLUS #### [facility] [address] [place] [address] Urobilinogen Test strip (U) [Mass/Vol]Ordered By: PROVIDER TEMP on 12-12-2023 Urobilinogen (U) [Mass/Vol] Normal mg/dL Normal [facility] pH of Urine by Test stripOrd ered By: PROVIDER TEMP on 12-12-2023 pH (U) 7.5 [pH] Normal 5.0-9.0 [facility] Comment on above: Order Comment: Name Collection Type:: Clean-Voided Midstream Performed By: #### A DDONUAPLUS #### [facility] [address] [place] [address] Neurosurgery Office/Clinic N oteon 09-29-2022 Neurosurgery Office/Clinic Note Chief Complaint Patient is being seen to review imaging. History of Present Illness Patient is a pleasant 42-year-old male with a history of depression, anxiety, obstructive sleep apnea, paroxysmal atrial fibrillation (implantable loop monitor), hyperlipidemia, and vitamin D deficiency, who presents to the outpatient neurosurgical clinic today for follow up and imaging review on behalf of complaints of right gluteal pain with right lower extremity radicular syndrome. Patient reports he has struggled with intermittent exacerbations of similar pain syndrome over the course of the past 10 years. He reports the onset of his most recent exacerbation approximately 8 months ago without precipitating injury. Since onset, he reports dramatic improvement with a recent L5-S1 transforaminal KRUPA performed through his treating pain management team. He continues to describe much milder and more intermittent pain throughout the right superior lateral gluteal region with radiation into the right proximal posterior thigh with isolated numbness/paresthesia s throughout the right great toe. He denies numbness or paresthesias in the proximal right lower extremity. He notes rare left gluteal discomfort without severe or intractable left gluteal pain and without left lower extremity radicular pain, numbness, or paresthesias. Patient denies significant axial lumbar pain. He denies motor weakness in the lower extremities, bowel/bladder incontinence, or saddle paresthesias. Patient denies significant cervical or thoracic pain. He denies radicular pain or numbness/paresthesia s in the upper extremities or chest wall/thorax. Patient denies motor weakness in the upper extremities, decreased dexterity, or chronic gait imbalance. Work up includes: MRI lumbosacral spine 05/04/2022: Primarily 1 level degenerative disc disease at L5-S1; question of bilateral L5 pars defects without abnormal listhesis; central/right paracentral disc L5-S1 with mild right L5-S1 lateral recess stenosis CT lumbosacral spine: 09/23/2022: No suggestion of L5 pars defects; no vacuum disc or vacuum facet phenomenon Flexion/extension x-rays lumbosacral spine: 09/23/2022: Stable At onset, patient rates his pain in the high VAS range on a standard pain scale. With a recent right L5-S1 transforaminal KRUPA performed beginning of July 2022, patient estimates a greater than 80% improvement in pain such that he currently rates his pain at 2-3/10 on a standard pain scale. Patient has also participated in a course of physical therapy with 6 to 8 weeks of therapy being completed April and May 2022 through [facility]. Patient states his pain does not currently interrupt sleep or activity level/function. Physical Exam Vitals & Measurements HR: 73 (Peripheral) BP: 128/82 SpO2: 96 HT: 172.5 cm WT: 87.2 kg WT: 87.2 kg (Dosing) BMI: 29.3 Additional Vitals BP Position/Location: Sitting, Right arm General: [Alert and oriented, well nourished, no acute distress]. Eye: [normal conjunctiva, no scleral icterus]. HENT: [normocephalic, atraumatic, oral mucosa pink and moist, dentition intact]. Neck: [Supple]. Pulmonary: [non-labored respiration]. Cardiovascular: [no edema, strong pulses with rapid capillary refill]. Skin: [Normal temperature and texture; no rashes; no digit clubbing or cyanosis]. Psychiatric: [Appropriate judgment and insight, appropriate mood and affect]. On exam in the office, patient is seated comfortably in a chair and is non painful appearing. The thoracolumbar spine is without deformities. No significant myospasms. Thoracolumbar spine is nontender to palpation and percussion. Bilateral sacroiliac regions are nontender to palpation. Good preservation in range of motion without pain with range of motion. No lumbar neurotension signs with negative straight leg raise, reverse straight leg raise, and femoral stretch test bilaterally. Bilateral hips are nontender to palpation with negative hip pointer signs. Muscle strength is 5 out of 5 and equal bilateral lower extremities. DTRs are 2/4 and equal bilateral lower extremities. No myelopathic features are noted. Gait is normal without significant antalgia and with full ability to toe and heel walk. Assessment/Plan 1. Low back pain 2. Lumbar radiculopathy 3. Protrusion of lumbar intervertebral disc At this time, the role for surgical intervention on behalf of patient's lumbosacral spine and presenting syndrome of complaints remains somewhat unclear. Independent visualization and interpretation of imaging was completed. Patient is shown his imaging on a large screen television and the findings were reviewed with him in detail. Patient presents with the primary complaint of right gluteal pain with right lower extremity radicular syndrome in primarily a right S1 distribution. Patient reports he is struggled with intermittent exacerbations of similar pain syndrome over the course of the past 10 years with the onset of his most recent exacerbation approximately 8 mo (more content not included)... Normal [facility] Provider Letteron 09-29-2022 Provider Letter Landon Galvez MD [address] [place] [address] Re: Wilton Drakelissytenisha Date of Visit: 09/29/2022 Dear Landon Galvez, Thank you for allowing me to contribute to the care of your patient, Wilton Brennan. Attached is my office note and you will find my assessment and recommendations from our encounter today. Please do not hesitate to contact me with any questions or concerns. Sincerely, Shasta Al PA-C [facility] [address] [address] The following document(s) were included in the letter: September 29, 2022 14:03:39 EDT - (09/29/2022) Neurosurgery Office Visit Note Normal [facility] Neurosurgery Office/Clinic N oteon 07-29-2022 Neurosurgery Office/Clinic Note Chief Complaint Patient is being seen for a back consult. History of Present Illness Patient is a pleasant 42-year-old male with a history of depression, anxiety, obstructive sleep apnea, paroxysmal atrial fibrillation (implantable loop monitor), hyperlipidemia, and vitamin D deficiency, who presents to the outpatient neurosurgical clinic today as a new patient, at the request of his treating pain management provider, Dr. Truong, for consultation on behalf of complaints of right gluteal pain with right lower extremity radicular syndrome. Patient reports he is struggled with intermittent exacerbations of similar pain syndrome over the course of the past 10 years. He reports the onset of his most recent exacerbation approximately 6 months ago without precipitating injury. Since onset, he reports dramatic improvement with a recent L5-S1 transforaminal KRUPA performed through his treating pain management team approximately 2 to 3 weeks ago. He continues to describe much milder and more intermittent pain throughout the right superior lateral gluteal region with radiation into the right lower extremity in primarily a right S1 distribution with isolated numbness/paresthesia s throughout the right great toe. He denies numbness or paresthesias in the proximal right lower extremity. He notes rare left gluteal discomfort without severe or intractable left gluteal pain and without left lower extremity radicular pain, numbness, or paresthesias. Patient denies significant axial lumbar pain. He denies motor weakness in the lower extremities, bowel/bladder incontinence, or saddle paresthesias. Patient denies significant cervical or thoracic pain. He denies radicular pain or numbness/paresthesia s in the upper extremities or chest wall/thorax. Patient denies motor weakness in the upper extremities, decreased dexterity, or chronic gait imbalance. At onset, patient rates his pain in the high VAS range on a standard pain scale. With a recent right L5-S1 transforaminal KRUPA performed beginning of July 2022, patient estimates a greater than 80% improvement in pain such that he currently rates his pain at 2-3/10 on a standard pain scale. Patient is also participated in a course of physical therapy with 6 to 8 weeks of therapy being completed April and May 2022 through [facility] without benefit. Patient states his pain does not currently interrupt sleep or activity level/function. PAST MEDICAL HISTORY: Paroxysmal atrial fibrillation Hyperlipidemia GERD Obstructive sleep apnea Depression Anxiety Vitamin D deficiency PAST SURGICAL HISTORY: Tonsillectomy Vasectomy ALLERGIES: No known drug allergies MEDICATIONS: See medication list SOCIAL HISTORY: Patient is . He has 4 children. He lives independently in [place]. Patient denies nicotine or recreational drugs. He estimates alcohol consumption of 2 drinks per week. 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 He states no [place] of Workmen's Compensation or third-constitution party insurance claims based on today's office visit. FAMILY HISTORY: Family history reviewed and noncontributory Review of Systems Constitutional: [No fevers, chills, sweats] Eye: [No recent visual problems] ENT: [No ear pain, sore throat, nasal congestion] Respiratory: [No shortness of breath, cough] Vascular: [No edema, erythema, discoloration] Cardiovascular: [No Chest pain, palpitations, syncope] Neuro: [No headaches, dizziness] Gastrointestinal: [No nausea, vomiting, diarrhea] Genitourinary: [No hematuria] Endocrine: [no polydipsia, polyphagia] Hematology: [no easy bruising, no bleeding tendencies] Physical Exam Vitals & Measurements HR: 89 (Peripheral) BP: 126/86 HT: 173 cm WT: 89 kg WT: 89 kg (Dosing) BMI: 29.74 Additional Vitals BP Position/Location: Sitting, Left arm GENERAL PHYSICAL EXAM: GENERAL: well developed, well nourished, no distress HEAD: normocephalic, atraumatic EYES: anicteric, atraumatic MUCOUS MEMBRANES: Moist, no evidence of dehydration NECK: supple, full range of motion, no deformity noted; no cervical adenopathy; no carotid bruits; no tracheal deviation; no winging of the scapula; no drooping of the shoulder; no evidence of neurotension signs such as Lhermitte's or Spurling sign CHEST: clear CARDIAC: normal heart sounds no murmurs or extra sounds SHOULDER: Full range of motion on active and passive evaluation; no evidence of impingement or rotator cuff tendinopathy, negative empty can testing. PERIPHERAL NERVES: no tinel's signs carpal, cubital, or peroneal, no digital compression provocation SPINE: no evidence of scoliosis, rib hump, deformities or step-offs. No trigger points or myospasm VASCULAR: strong pulses with rapid capillary refill, no evidence of Raynaud's phenomenon, autonomic disturbance, venous insufficiency, or thoracic outlet syndrome. HIP: no Fabere's or Rodo's sign LUMBAR: range of motion normal; no evidence of neurotension signs such as stra (more content not included)... Normal [facility] Provider Letteron 07-29-2022 Provider Letter Landon Galvez MD [address] [place] [address] Re: Wilton Brennan Date of Visit: 07/29/2022 Dear Landon Galvez, Thank you for allowing me to contribute to the care of your patient, Wilton Brennan. Attached is my office note and you will find my assessment and recommendations from our encounter today. Please do not hesitate to contact me with any questions or concerns. Sincerely, Shasta Al PA-C [facility] [address] [address] The following document(s) were included in the letter: July 29, 2022 15:02:13 EDT - (07/29/2022) Neurosurgery Office Visit Note Normal [facility] Quick Strepon 07-18-2022 S. pyogenes Org specific cx Ql (Throat) Negative [employer] Other Quick Strep [employer] Other MRI LSPINE WO CONon 05-04-19 MRI LSPINE WO CON EXAMINATION: MRI LSPINE WO CON HISTORY: Degeneration of lumbar intervertebral disc COMPARISON: No relevant comparison available. TECHNIQUE: A variety of imaging planes and parameters were utilized for visualization of suspected pathology. FINDINGS: For the purposes of numbering, sagittal T2 image # 9 extends from the T11 vertebral body superiorly to the L2 level inferiorly. PARASPINAL AREA: Normal with no visible mass. BONES: No fracture, pars defect, or osseous lesion. CORD/CAUDA EQUINA: Normal caliber, contour, and signal intensity. DISC LEVELS: 12-L1: No significant disc/facet abnormality, spinal stenosis, or foraminal stenosis. L1-L2: No significant disc/facet abnormality, spinal stenosis, or foraminal stenosis. L2-L3: No significant disc/facet abnormality, spinal stenosis, or foraminal stenosis. L3-L4: No significant disc/facet abnormality, spinal stenosis, or foraminal stenosis. L4-L5: No significant disc/facet abnormality, spinal stenosis, or foraminal stenosis. L5-S1: Moderate narrowing and dessication. Broad based posterior disc herniation of the protrusion type extending 4.3mm this abuts but does not efface the exiting nerve IMPRESSION: Posterior broad-based disc herniation of the protrusion type at L5-S1 abutting but not effacing the exiting nerve Electronically authenticated by: BERNADINE FISHER Date: 2022-05-04 16:26 Normal [facility] XR FOREIGN BODY EYEon 2022 XR FOREIGN BODY EYE EXAMINATION: XR FOREIGN BODY EYE HISTORY: Foreign body in eye COMPARISON: No relevant comparison available. FINDINGS: ORBITS: Negative for a metallic foreign body. OTHER: Negative. IMPRESSION: No metallic foreign body in the orbits Electronically authenticated by: BERNADINE FISHER Date: 2022-05-04 09:03 Normal [facility] XR LSPINE 2_3 VIEWSon 2021 XR LSPINE 2_3 VIEWS EXAMINATION: XR LSPINE 2_3 VIEWS HISTORY: Degeneration of lumbar intervertebral disc ; chronic low back pain COMPARISON: No relevant comparison available. FINDINGS: BONES: No significant spondylosis, scoliosis, fracture, or visible bony lesion. DISC SPACES: L5-S1 disc space is moderately narrowed posteriorly. PARASPINOUS: Negative. No paraspinous abnormality is seen. OTHER: Negative. IMPRESSION: 1. L5-S1 mild-moderate degenerative disc disease. Consider MRI for further evaluation. Electronically authenticated by: HOWARD JIM Date: 2022-02-19 08:03 Normal [facility] TESTOSTERONE, TOTALon 2021 Testosterone [Mass/Vol] 193 ng/dL Critically low 264-916 [facility] Comment on above: Result Comment: Adul t male reference interval is based on a population of healthy nonobese males (BMI <30) between 19 and 39 years old. Aaron et.al. JCEM 2017,102;5809-4412. PMID: [id number]. Performed By: #### T ESTTOT #### [facility] [address] [place], [place] [address] Dr. Debi Zapien Cardiovascular Lab Reporton 08-17-2021 Cardiovascular Lab Report [facility] Patient Name: Wilton Brennan [facility] MR #: [id number] Physician: Diaz Bowser MD Department of Service Date: 08/17/2021 Medicine Birthdate: 1980 Division of Room #: Cardiology Adult Cardiovascular Services [place] [address] Cardiovascular Laboratory Report LOOP IMPLANT PROCEDURE NOTE DATE OF PROCEDURE: 08/17/2021 PERFORMING PHYSICIAN: Dr. Diaz Bowser INDICATIONS FOR PROCEDURE: 1. SVT CONSENT: Patient LOCATION: EP Lab PROCEDURAL SEDATION: None FLUOROSCOPY TIME: 0min PREPARATION: Preoperative antibiotics was administered. PROCEDURES PERFORMED: 1. LOOP implant PROCEDURE NOTE: 41-year-old gentleman with a past medical history of SVT, was noted to have a ventricular rate of 215 beats per minute. He has not had any further episodes and wanted to have a loop monitor for close surveillance.. Patient was brought to the EP lab in the post absorptive state. A procedural pause was performed verifying the patient, the procedure. Sterile prep and drape were performed over the left precordium and anesthesia with 1% lidocaine was followed by a small incision was made in the 3rd intercostal space near the sternum on the left using the [employer] tool. The loop recorder was then injected subcutaneously and noted to have good sensing parameters. Technical details of the device as noted below. The skin was then closed with 3-0 absorbable monofilament suture and glue applied to hold the edges together. Tegaderm was applied to cover the wound. The patient appeared to tolerate the procedure well and was returned to the room in stable condition. No complications were immediately observed. LOOP details: Device Model: M301 Serial#: [id number] Sensing is 0.27mV. IMPRESSION: Successful placement of LOOP implant with excellent sensing parameters. RECOMMENDATIONS: 1. Occlusive dressing to be changed after 7 days. 2. Do not wet the incision. Diaz Bowser MD Cardiac Electrophysiology Electronically Signed by: Diaz Bowser MD 08/23/2021 05:14 P Diaz Bowser MD Date Dict: 08/17/2021/10:35 A/Diaz Bowser MD Date Trans: 08/17/2021 11:23 A/alex [id number] cc: Landon Galvez M.D. [address] [facility] [id number] Normal [facility] Covid-19 PCR (CVDTB)on 08-05 SARS-CoV-2 (COVID-19) RNA ALONA+probe Ql (Unsp spec) Not detected Normal NOT DETECTED [facility] Comment on above: Result Comment: This test is not yet approved or cleared by the [place] FDA. When there are no FDA-approved or cleared tests available, and other criteria are met, FDA can make tests available under an emergency access mechanism called an Emergency Use Authorization (EUA). The EUA for this test is supported by the [employer] of Health and Human Service's (HHS's) declaration that circumstances exist to justify the emergency use of in vitro diagnostics for the detection and/or diagnosis of the virus that causes COVID-19. This EUA will remain in effect (meaning this test can be used) for the duration of the COVID-19 declaration justifying emergency of IVDs, unless it is terminated or revoked by FDA (after which the test may no longer be used). When diagnostic testing is negative, the possibility of a false negative should be considered in the context of a patient's recent exposures and the presence of clinical signs and symptoms consistent with SARS-CoV-2. Performed By: #### [facility] #### [facility] [address] [place] [address] [address] Debi Zapien [facility] 06-09-2021 aPTT Coag (Bld) [Time] 53.5 s High 25.0-35.0 [facility] Comment on above: Order Comment: No: D o not add to previous draw Result Comment: CLIN ICAL SIGNIFICANCE OF THE PTT RESULT IS QUESTIONABLE IN THE PRESENCE OF HEPARIN. ALL RESULTS MUST BE INTERPRETED WITH RESPECT TO BLOOD DRAWING ARTIFACT OR DILUTION ERROR OF ANTICOAGULANT AT THE TIME OF SAMPLING. THE APTT SHOULD NOT BE USED TO MONITOR UNFRACTIONATED HEPARIN THERAPY, THIS LABORATORY NO LONGER HAS AN ESTABLISHED THERAPEUTIC RANGE BASED ON THE APTT. IT IS RECOMMENDED THAT THE UFH - HEPARIN ASSAY (ANTI-XA ACTIVITY) BE USED FOR THIS PURPOSE. Performed By: #### 5 [id number], [id number] ####[facility] [place] [address], [facility] aPTT Coag (Bld) [Time] 66.3 s High 25.0-35.0 [facility] Comment on above: Order Comment: No: D o not add to previous draw Result Comment: ALL RESULTS MUST BE INTERPRETED WITH RESPECT TO BLOOD DRAWING ARTIFACT OR DILUTION ERROR OF ANTICOAGULANT AT THE TIME OF SAMPLING. THE APTT SHOULD NOT BE USED TO MONITOR UNFRACTIONATED HEPARIN THERAPY, THIS LABORATORY NO LONGER HAS AN ESTABLISHED THERAPEUTIC RANGE BASED ON THE APTT. IT IS RECOMMENDED THAT THE UFH - HEPARIN ASSAY (ANTI-XA ACTIVITY) BE USED FOR THIS PURPOSE. Performed By: #### 5 [id number], [id number] ####[facility] [facility] [place] [address], [facility] aPTT Coag (Bld) [Time] 45.5 s High 25.0-35.0 [facility] Comment on above: Order Comment: No: D o not add to previous draw Result Comment: ALL RESULTS MUST BE INTERPRETED WITH RESPECT TO BLOOD DRAWING ARTIFACT OR DILUTION ERROR OF ANTICOAGULANT AT THE TIME OF SAMPLING. THE APTT SHOULD NOT BE USED TO MONITOR UNFRACTIONATED HEPARIN THERAPY, THIS LABORATORY NO LONGER HAS AN ESTABLISHED THERAPEUTIC RANGE BASED ON THE APTT. IT IS RECOMMENDED THAT THE UFH - HEPARIN ASSAY (ANTI-XA ACTIVITY) BE USED FOR THIS PURPOSE. Performed By: #### 5 [id number], [id number] ####[facility] [place] [address], [facility] CBC W/DIFFon 06-09-2021 ABS IMM GRANS 0.1 10*3/uL Normal 0.0-0.2 The [facility] Comment on above: Order Comment: No: D o not add to previous draw Performed By: #### 5 [id number] #### [facility] [address] [place] [address], [facility] ABS NEUTROPHILS 3.8 10*3/uL Normal 1.6-7.6 The [facility] Comment on above: Order Comment: No: D o not add to previous draw Performed By: #### 5 0103 #### [facility] [address] [facility] [address], [facility] Basophils (Bld) [#/Vol] 0.1 10*3/uL Normal 0.0-0.2 [facility] Comment on above: Order Comment: No: D o not add to previous draw Performed By: #### 5 0103 #### [facility] [address] [facility] [place] [address], [facility] Basophils/100 WBC (Bld) 0.8 % Normal 0.0-1.0 [facility] Comment on above: Order Comment: No: D o not add to previous draw Performed By: #### 5 0103 #### [facility] [facility] [address] [address], [facility] Eosinophils (Bld) [#/Vol] 0.2 10*3/uL Normal 0.0-0.5 [facility] Comment on above: Order Comment: No: D o not add to previous draw Performed By: #### 5 0103 #### [facility] [address] [place] [address], [facility] Eosinophils/100 WBC (Bld) 2.5 % Normal 0.0-6.0 [facility] Comment on above: Order Comment: No: D o not add to previous draw Performed By: #### 5 0103 #### [facility] [address] [place] [address], [facility] Erythrocyte distribution width (RBC) [Ratio] 13.5 % Normal 11.5-15.0 [facility] Comment on above: Order Comment: No: D o not add to previous draw Performed By: #### 5 0103 #### [facility] [address] [place] [address], [facility] Hematocrit (Bld) [Volume fraction] 42.5 % Normal 39.0-50.0 [facility] Comment on above: Order Comment: No: D o not add to previous draw Performed By: #### 5 0103 #### [facility] [address] [place] [address], [facility] Hemoglobin (Bld) [Mass/Vol] 14.7 g/dL Normal 13.0-17.0 [facility] Comment on above: Order Comment: No: D o not add to previous draw Performed By: #### 5 0103 #### [facility] [address] [place] [address], [facility] IMMATURE GRANS 0.7 % Normal 0.0-1.0 [facility] Comment on above: Order Comment: No: D o not add to previous draw Performed By: #### 5 0103 #### [facility] [address] [place] [address], [facility] Lymphocytes (Bld) [#/Vol] 2.6 10*3/uL Normal 1.2-4.0 [facility] Comment on above: Order Comment: No: D o not add to previous draw Performed By: #### 5 0103 #### [facility] [address] [place] [address], [facility] Lymphocytes/100 WBC (Bld) 34.4 % Normal 20.0-45.0 [facility] Comment on above: Order Comment: No: D o not add to previous draw Performed By: #### 5 0103 #### [facility] [address] [facility] [place] [address], [facility] MCH (RBC) [Entitic mass] 31.0 pg Normal 27.0-33.0 [facility] Comment on above: Order Comment: No: D o not add to previous draw Performed By: #### 5 0103 #### [facility] [address] [facility] [place] [address], [facility] MCHC (RBC) [Mass/Vol] 34.6 g/dL Normal 32.0-35.0 [facility] Comment on above: Order Comment: No: D o not add to previous draw Performed By: #### 5 0103 #### [facility] [address] [place] [address], [facility] MCV (RBC) [Entitic vol] 89.7 fL Normal 82.0-98.0 [facility] Comment on above: Order Comment: No: D o not add to previous draw Performed By: #### 5 0103 #### [facility] [address] [facility] [place] [address], [facility] Monocytes (Bld) [#/Vol] 0.9 10*3/uL Normal 0.1-1.0 [facility] Comment on above: Order Comment: No: D o not add to previous draw Performed By: #### 5 0103 #### [facility] [address] [place] [address], [facility] MONOS 12.3 % High 5.0-12.0 [facility] Comment on above: Order Comment: No: D o not add to previous draw Performed By: #### 5 0103 #### [facility] [address] [place] [address], [facility] Neutrophils/100 WBC (Bld) 49.3 % Normal 40.0-72.0 [facility] Comment on above: Order Comment: No: D o not add to previous draw Performed By: #### 5 0103 #### [facility] [address] [place] [address], [facility] Nucleated RBC/100 WBC (Bld) [Ratio] 0 % Normal 0-0 [facility] Comment on above: Order Comment: No: D o not add to previous draw Performed By: #### 5 0103 #### [facility] [address] [place] [address], [facility] PLAT CNT 257 10*3/uL Normal 150-400 [facility] Comment on above: Order Comment: No: D o not add to previous draw Performed By: #### 5 0103 #### [facility] [address] [facility] [place] [address], [facility] RBC (Bld) [#/Vol] 4.74 10*6/uL Normal 4.20-5.70 [facility] Comment on above: Order Comment: No: D o not add to previous draw Performed By: #### 5 0103 #### [facility] [address] [facility] [place] [address], [facility] WBC (Bld) [#/Vol] 7.62 10*3/uL Normal 4.00-10.60 [facility] Comment on above: Order Comment: No: D o not add to previous draw Performed By: #### 5 0103 #### [facility] [address] [place] [address], [facility] COMP METABOLIC PANELon 06-09 Albumin [Mass/Vol] 3.9 g/dL Normal 3.5-5.7 [facility] Comment on above: Order Comment: No: D o not add to previous draw Performed By: #### 3 5200, 33694, 94621, 09767, 84360 #### [facility] [address] [place] [address], [facility] ALKALINE PHOSPH 57 IU/L Normal 34-104 [facility] Comment on above: Order Comment: No: D o not add to previous draw Performed By: #### 3 5200, 04677, 17070, 35503, 72430 #### [facility] [address] [place] [address], [place] ALT [Catalytic activity/Vol] 118 U/L High 7-52 [facility] Comment on above: Order Comment: No: D o not add to previous draw Performed By: #### 3 5200, 90882, 02772, 91815, 65641 #### [facility] [address] [place] [address], [place] AST [Catalytic activity/Vol] 41 U/L High 13-39 [facility] Comment on above: Order Comment: No: D o not add to previous draw Performed By: #### 3 5200, 23272, 00681, 89034, 36326 #### [facility] [address] [place] [address], [place] Bilirubin [Mass/Vol] 0.4 mg/dL Normal 0.3-1.0 [facility] Comment on above: Order Comment: No: D o not add to previous draw Performed By: #### 3 5200, 22424, 79545, 55696, 23296 #### [facility] [address] [place] [address], [place] Calcium [Mass/Vol] 8.4 mg/dL Low 8.6-10.3 [facility] Comment on above: Order Comment: No: D o not add to previous draw Performed By: #### 3 5200, 63500, 22377, 98308, 18868 #### [facility] [address] [place] [address], [place] Chloride [Moles/Vol] 106 mmol/L Normal 98-107 [facility] Comment on above: Order Comment: No: D o not add to previous draw Performed By: #### 3 5200, 88596, 77060, 59441, 15789 #### [facility] [address] [place] [address], [place] CO2 [Moles/Vol] 23 mmol/L Normal 21-31 [facility] Comment on above: Order Comment: No: D o not add to previous draw Performed By: #### 3 5200, 30305, 06272, 59167, 83903 #### [facility] [address] [place] [address], [place] Creatinine [Mass/Vol] 0.75 mg/dL Normal 0.70-1.30 [facility] Comment on above: Order Comment: No: D o not add to previous draw Performed By: #### 3 5200, 00984, 04656, 99868, 90173 #### [facility] [address] [place] [address], [place] GFR/1.73 sq M.predicted among blacks MDRD (S/P/Bld) [Vol rate/Area] mL/min/{1.73_m2} Normal >60 [facility] Comment on above: Order Comment: No: D o not add to previous draw Performed By: #### 3 5200, 53171, 74182, 65748, 98111 #### [facility] [address] [place] [address], [place] GFR/1.73 sq M.predicted among non-blacks MDRD (S/P/Bld) [Vol rate/Area] mL/min/{1.73_m2} Normal >60 [facility] Comment on above: Order Comment: No: D o not add to previous draw Performed By: #### 3 5200, 31299, 04262, 14011, 78643 #### [facility] [address] [place] [address], [place] Glucose [Mass/Vol] 88 mg/dL Normal 70-100 [facility] Comment on above: Order Comment: No: D o not add to previous draw Performed By: #### 3 5200, 50869, 20810, 85082, 93090 #### [facility] [address] [place] [address], [place] Potassium [Moles/Vol] 3.5 mmol/L Normal 3.5-5.1 [facility] Comment on above: Order Comment: No: D o not add to previous draw Performed By: #### 3 5200, 74289, 08283, 84590, 01314 #### [facility] [address] [place] [address], [place] Protein [Mass/Vol] 6.2 g/dL Normal 6.0-8.3 [facility] Comment on above: Order Comment: No: D o not add to previous draw Performed By: #### 3 5200, 61580, 24367, 89782, 57928 #### [facility] [address] [place] [address], [place] Sodium [Moles/Vol] 137 mmol/L Normal 136-145 [facility] Comment on above: Order Comment: No: D o not add to previous draw Performed By: #### 3 5200, 83543, 31758, 08378, 34318 #### [facility] [address] [place] [address], [place] Urea nitrogen [Mass/Vol] 17 mg/dL Normal 7-25 [facility] Comment on above: Order Comment: No: D o not add to previous draw Performed By: #### 3 5200, 02491, 03108, 82349, 23475 #### [facility] [address] [place] [address], [place] MAGNESIUM BLOODon 06-09-2021 Magnesium [Mass/Vol] 2.1 mg/dL Normal 1.9-2.7 [facility] Comment on above: Order Comment: No: D o not add to previous draw Performed By: #### 3 5200, 84029, 51226, 50692, 59140 #### [facility] [address] [place] [address], [place] PHOSPHORUS BLOODon 2 Phosphate [Mass/Vol] 3.7 mg/dL Normal 2.5-5.0 [facility] Comment on above: Order Comment: No: D o not add to previous draw Performed By: #### 3 5200, 37831, 89861, 12307, 59229 #### [facility] [address] [place] [address], [facility] TROPONIN-Ion 06-09-2021 Troponin I.cardiac [Mass/Vol] 0.00 ng/mL Normal 0.00-0.04 [facility] Comment on above: Order Comment: No: D o not add to previous draw Result Comment: REFE RENCE RANGES: 0.00 - 0.04 ng/ml NORMAL 0.05 - 0.50 ng/ml INDETERMINATE > 0.50 ng/ml CONSISTENT WITH AN M.I. Performed By: #### 3 5200 #### [facility] [address] [facility] Troponin I.cardiac [Mass/Vol] 0.00 ng/mL Normal 0.00-0.04 [facility] Comment on above: Order Comment: No: D o not add to previous draw Result Comment: REFE RENCE RANGES: 0.00 - 0.04 ng/ml NORMAL 0.05 - 0.50 ng/ml INDETERMINATE > 0.50 ng/ml CONSISTENT WITH AN M.I. Performed By: #### 3 5200, 97240, 34565, 78777, 16519 #### [facility] [address] [facility] [place] [address], [facility] TSH3on 06-09-2021 TSH 3RD GENERATION 4.48 uIU/mL Normal 0.34-5.60 [facility] Comment on above: Order Comment: No: D o not add to previous draw Performed By: #### 3 5200, 30529, 99873, 12293, 08977 #### [facility] [address] [address], [facility] UFH HEPARIN ASSAYon 06-10-19 22 UNFRACTIONATED HEPARIN 0.39 IU/mL Normal 0.30-0.70 [facility] Comment on above: Result Comment: [place] roxaban and Apixaban will interfere with the anti Xa assay used to monitor UFH and LMWH. Rivaroxaban and Apixaban will interfere with the anti Xa assay used to monitor UFH and LMWH. Performed By: #### 5 7307, 74438 ####[facility] UNFRACTIONATED HEPARIN 0.52 IU/mL Normal 0.30-0.70 [facility] Comment on above: Result Comment: [place] roxaban and Apixaban will interfere with the anti Xa assay used to monitor UFH and LMWH. Performed By: #### 5 7307, 66523 #### [facility] [address] UNFRACTIONATED HEPARIN 0.72 IU/mL High 0.30-0.70 [facility] Comment on above: Result Comment: [place] roxaban and Apixaban will interfere with the anti Xa assay used to monitor UFH and LMWH. Performed By: #### 5 7307, 00148 ####[facility] Coding Summary.on 10-23-2020 Coding Summary. CD:[id number] Gh0bWw+PGhlYWQ+PE1FV LJmT24xuCIfdD0FB1xLB N2QZQBGNLGTDB9WVN0ne RT2QSjmS3GhjmBj WcgmmUEdEH91IBl8TQG9 bOapYTvmnO7feQQoY9u5 HwIwNC95qD16IDxqJYKk GlX6BpGzcpjshHHy M8uqNlDpoPGzDjn+PHRh YmxlIHdpZHRoPScxMDAl LfRkaQiqZR5pSy8rKULh LWNvbGxhcHNlOiBj x0zoVPGiJOlfYM2aeYio X4EttEI4QGGvm0s3Qb76 dHI+VWGuOKM3lSgxEPey k241OnBzc7tdSVP9 uIVkQVsbTNA5F33cb3M4 WKFjCSLdMQS3pJS7sC4n aRfvxrlnS8JguEWpVwO6 IAU5zLFpyV0lrDkw nsmaqS5eHic+V83MYC9B JWDCIV0OLjh2T2KcSkvv dHI+EG63YVHgAG56rDBv oQTwa7rnvQt9EkNe ZRPyKAL3fIezYCbmo4Qr PTCpW42gxWLij8N7OZHz pWcmhVMeWaKqtCD5vD2d NIhqyezqj6hbosef Jhpmb5hxom44jJ25M25p MJhiBLEnDPA6AJRfZUHz dXyoed4iiD9eQx3+IDxj n0ykt0umyEu7JaFj EBSvpjKcxErfPAM4t3Or Br81M9ZcmWaxh0NzUfp4 zi18cVPzp5R2qZT0TSns FONmsZ1nAFjjBmR3 WHJoOtOnwQ93aFFxIGew Za8hmIeeuIfyFZ6uNSGx jpmkMZJkdW4uMBAacJGg sRuoMW9uINNlonui w765OgKoIXU7OXHbkYSp Z4NkgN3bZwRzAPZaISCl X2MkyQGcRSvnB928MTjt KrQ7HXQbhrHpN5Dz GGDasNleAeM3q5X0Qg7Z e2SonwhxEMV8VZzoYOG1 YiB9CcMcUxT5C4NiFpx5 HSYajVejBB5qL6Pm MSEjvhudpmzpxSS6UQZq RLUwmS91lERnGCuzOr6k f0H4p916RILkDLCzfF94 Bo7ahWsaNYStoYQE hD4nlzjrq4xbyelcMiYa ZXSvMAu0MJt6NDOdePyi DaTpXLT9LmL2MZO9eQUt xV8uqGgaghikrX9c Oyc+F69ccI9pQBF3VDC4 ydbqLYZxivYaHX62AW20 E8UtRbeloGIolND+PGRp gzYliMvxFQ3uNfGr w5hpq0NtLOxgG7QfEQLh QTkcNuw9JNChKTC3cDZ2 mA7gSASzGUppe3U3dRT8 J8OfweUcfa2nj7bu GHEpNGfqC14szWRsz8X0 YIFnuMD5XCYcgVuzUhDu yL64Wgh+YEFyyYakv2Hf Ergtk7con1fgrBr5 IjMwJSIgdmFsaWduPSJ0 n8SiWn67E77vAMatRQNk KOXxDSNpIDUksXxapg6v mE1uVb5+PGNvbCB3 vIE8rE7yHUVkEyH2RDdk E648ArNfsKSnBtbfo5cf q9yefKp9DvWgGFWhvcPv fHnbMON2u6EbVg73 O17zQGvpLDLvLKYzRQJb NKTkpMaizl9rvD1wYr3+ DA7ed6mgcr22fV12oRB+ CFTkQMR7tKuxHDpy SVCpbR6uSJtmKfB1XFEb AxOzqU98mYTvAQdmLt4r bSabaTlbHR8pYKOhlsqr x666KfDsz4utEULd eZFuZQeeUXM9A08mk3G3 LWGsPOBuZCC8uLV9fB9i bGlnbjogbGVmdDsgdmVy tLtbREeaKBphC790 IHRvcDsnPlBhdGllbnQg LuFxKRr2T5YjLoy6GIMn zOtwVX0kwZZpFAdeEy2h hBrmxIvlHH5tKKTu tsmje483ErThy0kuCYAi dEQtAYtfYVY4K92wl1R5 YJMvBYYlUHC9gCI7tM4j bGlnbjogbGVmdDsg qmCuvHbvJZujBElvA963 IHRvcDsnPkJpcnRoIERh bFK0XV88GS52cJNmt5P5 bXY2M7HfKZAahhsy vgxyqVO8QXNeVCHkoM55 Cn8vhVnxKj5nSLMhUWZ6 BZWuyTSkQ0ChiB8rKoFd SQDgPOIaB6GouYAc CFxyP729PEitQrX5DYOu vkQeA8IzABRtwHuiIaP7 c7E3Mg6YI8X1YS08RQ21 bLWxc2Y3mPF6A4Oc DWQfhrvkrhckqBQ5ZPGg OJEjvJ77Bt8dpEopPw9y MELkWQL0IOGyjUWjB8Ct xX5fCjKyXYXwWRMb Y1ZmkHNyKGyzK442KFnp TcF9WJWttnJrJ0EpIGWs mSqvTfJ2s1B1Ea0ZYKl6 AF25NK24vDJuk3F3 cXT8L3EbOHDneechegzq vKA7WVVfQYRzrO42Zf4v pFfzSh5wAOIpPOS2KZAu qJJrS1VfxJ0pRcCz HZDqQBJiD8AksCYyCZai O916JVbxEfV6WXFnoxHn U2IaRTColDvhVcW4g7F1 Mp5BQMKaVI80FZS9 qBT3HO97VV37U2KeIpmj dGFibGU+PHRhYmxlIHdp ZHRoPScxMDAlJyBzdHls KA9eRd3kGGPuVWNe gPjpgLAdSrKop4cjQLWk ZAhaAS4dqNxiK1UioFY1 HUBpa8w8Da64X01jZ7Co dXA+YTKjrOL7tVI3 xI6wCiHdQaW3LZddW460 FzKtyRPwUyclu3dup0qm hPl9BnP0NDObepEaeFkd SJO6f0FpJq46H18t IHdpZHRoPSIxNSUiIHZh lQqvkq8jzG9cBw8+PGNv wBW5jWX6bG3pZiDmHcB5 JXkxA779CdUkmXAk Tdibf7edv2qzyIp5TaSy PYCszrMcoVwrHPT2c4Uf Pm11S9CulKeoq8EcTqz9 bl34lXWad4S1lCT6 B8LySJVfmfcbrMCazGuf RD3zZLUxvcshYSAgqH0z SVMzM3i8VhWaYiD4VNnl C3VkpvP7OAQweCUf IJomVMF5C38ij0N5LOAq MPBkJVG3mDT0tI7aaQyk bjogbGVmdDsgdmVydGlj ICrqUNkzK648VBYv qIzeZBYetJ7nDQGwfYDy vQjpLN9mIKHfwdlkWq9Z RVJNWUVSLCBUWUxFUjwv dGQ+AWMpVHY3jEaf IKnfOYPjaO0yLEKeC1k9 TgKlCvF1SSnxV5ZgDMPc ffnzMc97tU9uRtLjPfS6 UZcwN9JhgnR0ATRo rQFyVKmsDGX4O38rm2A0 ZRQcVQJuRVQ9jSE6nO4g bGlnbjogbGVmdDsgdmVy wTitXLusXQshP544 MZZsjUkkQnBgUnG3AeD1 KGL7E7TdDfj7ACRlvRvx NG8xpOXdRJstGz0bxYqd fNazNL1vLRAwekdi OKShnB9cKCFkeVEzcImi AY2xCMJpiiflw951UzSi JON5SHUvjGLqP4HmkT9o KyQcPGBrTRXmQ0Ix wRMwCNfsT181NFtvVeS1 FNDnbvNhT8FkTXHokCtv QgF6g5P2Zn9wGOBUUMYt czwvdGQ+PHRkIHN0 wLypZJrcPFVptA6uXDAz W1p0WzRqInK7LRgoW2Sf QDXskyosVc86vX4aRmZo FjA0RBcuP4JkvgM2 WFCceOHaBSvaZVP6N99l q8T3BVStKEQwCFO2xIO2 mR5bkOudafylqHVmqBrb dmVydGljYWwtYWxp A914LVOivGhnKm2hzHE5 P8RgZnt9NHXfpAxcZY1y zUHwUUxdAv9woQdydSry IB3cEHIisaonWAEg sM2zRIPtxZAfyPkiPO5b BXJxocwax785VyRjISM2 HOCtuHIyM3CsfJ2pJuIk RRZiITYeW2UhhMAp NSfdQ382ZLicZcD7EBBy aeJfE4WrJFKfuJoxDqV9 c7G6Rv8HNEBtNDHxwJNh PfB9X6EwRkrmmWU+ QK10OBHkCJ43rVOwgNUl t0ijgBi1HyHiUBAvDSF2 nWwsQYfqd4AaYQKnR74o lBUob9X1ANYtvRtu qAXsChXtkCW9aU3bRFqv kaigo4vzzlgcYhrpy3rx hv73rR60W88nVZonCAGm PSIzMCUiIHZhbGln kb3laL8zWn8+PGNvbCB3 wZM4mI4eOdIjIoH2USeb F184VdZslYHbRhexd8aj u0kcsPt8LxUySIOi dzSxxLgxXAZ6e7LnUq37 Y99iHMvxCVLwPEBkZYXh YVYgqCaazr3ltC1vOb3+ WE0fq5qdki09rX98 dHI+TXVaQBF6wGqvHEdo HORljE8tDYahTeE0YMAn IsOolP33nCKsWAgsNp2k oMatyBvkTB6cBUZe weggm327BnCzz2paQTWv yAJlITcuWYY9Q55ah2K1 PIPmEQRnUBN2aRH3mJ2m bGlnbjogbGVmdDsg ziGpzAdmRWtqRTgaC547 DNGjvIcxYbVrqBHjQ9vu qmTKYF3dErufoML+PHRk VNG8tQcrZGpsKYQr oJ4bVDNwR1w4PjNlPtK0 QYllC5IeweO6WZMtjAPp YIRzwCPYdA7bxhyfv7wv cjogIzAwMDAwMDt0 SLg1AYNdlAbdUmUuBJJ8 YeR8ANK7dGRonF5hoYlp zldvhM6dXmi+RklOOjwv dGQ+SPXcFGC7gQnd DJcuBEKtgM7qMIUnC7s2 JiHsWkX5ATfoA3WumpC3 YRKxsFRrVLNatIOGwJ7q jimlm5ceqlgqAmEk KHIfPSh2CVp6PPUvfMsg TzPvYDI2TeW7RGJ3oQHl aP2xkYieirnteP9aHvt+ TVJOOjwvdGQ+PHRk PQO3sDzvWOrtXKOvcS2i KTIqQ6z4RgDnHcD5DAyv K7EopuC9IKBsfDKhMNSz wOXCmP1kavhrr9ym ixdbUzQzJPGpVNw8ACo7 FZDvvHpxHlWnFRC4NiK3 SNU7fJFkbL1xwCeixqdg cK1jOgd+VMK3XSP2 JI52ZI60R0HqKslifAHf bGU+PHRhYmxlIHdpZHRo BLfuQQUyZlVxaDirSY9o Rp9qYILbHBEtrLke cHNl (more content not included)... Normal [facility] Semen Analysis PostVason Yesica/Transport Prob No Problems Normal [facility] Comment on above: Performed By: #### 2 [id number], [id number] #### [facility] [address] [place] [address] Collect. Meth Masturbation Normal [facility] Comment on above: Performed By: #### 2 [id number] #### [facility] [address] [place] [address] Days Abstained 2 day(s) Invalid Interpretation Code 2-5 [facility] Comment on above: Performed By: #### 2 [id number] #### [facility] [address] [place] [address] Post Vas Screen Present Normal <=0 [facility] Comment on above: Result Comment: Rare non-motile sperm present. 0-1 spermatozoa/hpf A Concentration Technique is used to confirm any semen which is azospermic (no sperm seen). Performed By: #### 2 [id number] #### [facility] [address] [place] [address] Spec. Container Steril Container Normal [facility] Comment on above: Performed By: #### 2 [id number] #### [facility] [address] [place] [address] Spec. Temp 27 DegC Normal 20-37 [facility] Comment on above: Performed By: #### 2 [id number] #### [facility] [address] [place] [address] Sperm Count 0-1 non-motile Invalid Interpretation Code >=20 [facility] Comment on above: Result Comment: A Co ncentration Technique is used to evaluate all sperm counts <20 million. Performed By: #### 2 [id number] #### [facility] [address] [place], [place] [id number] Sperm Morphon 10-20-2020 Sperm Morph No sperm identified (A concentration technique is used to evaluate this specimen). Invalid Interpretation Code [facility] Comment on above: Order Comment: Order Added by Discern Expert. Performed By: #### 2 [id number] #### [facility] [address] [place] [address] Sperm Morph No sperm identified (A concentration technique is used to evaluate this specimen). ICD10 Z30.9 Invalid Interpretation Code [facility] Comment on above: Other Comment: Order Added by Discern Expert. Consent for Treatmenton 10-05 Consent for Treatment [id number] Normal [facility] Ambulatory Clinical Summaryo n 08-15-2020 Ambulatory Clinical Summary {[id number] Normal [facility] Patient Educationon 08-16-19 21 Patient Education Urology Vasectomy, Care After This sheet gives you information about how to care for yourself after your procedure. Your health care provider may also give you more specific instructions. If you have problems or questions, contact your health care provider. What can I expect after the procedure? After your procedure, it is common to have: ? Mild pain, swelling, redness, or discomfort in your scrotum. ? Some blood coming from your incisions or puncture sites for one or two days. ? Blood in your semen. Follow these instructions at home: Medicines ? Take xwca-zvv-mrnzqeb and prescription medicines only as told by your health care provider. ? Avoid taking NSAIDs such as aspirin and ibuprofen, because these medicines can make bleeding worse. Activity ? For the first 2 days after surgery, avoid physical activity and exercise that require a lot of energy. Ask your health care provider what activities are safe for you. ? Do not participate in sports or perform heavy physical labor until your pain has improved, or until your health care provider says it is okay. ? Do not ejaculate for at least 1 week after the procedure, or as long as directed. ? You may resume sexual activity 7?10 days after your procedure, or when your health care provider approves. Use a different method of control (contraception) until you have had test results that confirm that there is no sperm in your semen. Scrotal support ? Use scrotal support, such as a jock strap or underwear with a supportive pouch, as needed for one week after your procedure. ? If you feel discomfort in your scrotum, you may remove the scrotal support to see if the discomfort is relieved. Sometimes scrotal support can press on the scrotum and cause or worsen discomfort. ? If your skin gets irritated, you may add some germ-free (sterile), fluffed bandages or a clean washcloth to the scrotal support. General instructions ? Put ice on the injured area: ? Put ice in a plastic bag. ? Place a towel between your skin and the bag. ? Leave the ice on for 20 minutes, 2?3 times a day. ? Check your incisions or puncture sites every day for signs of infection. Check for: ? Redness, swelling, or pain. ? Fluid or blood. ? Warmth. ? Pus or a bad smell. ? Leave stitches (sutures) in place. The sutures will dissolve on their own and do not need to be removed. ? Keep all follow-up visits as told by your health care provider. This is important because you will need a test to confirm that there is no sperm in your semen. Multiple ejaculations are needed to clear out sperm that were beyond the vasectomy site. You will need one test result showing that there is no sperm in your semen before you can resume unprotected sex. This may take 2?4 months after your procedure. ? Do not drive for 24 hours if you were given a sedative to help you relax. Contact a health care provider if: ? You have redness, swelling, or more pain around your incision or puncture site, or in your scrotum area in general. ? You have bleeding from your incision or puncture site. ? You have pus or a bad smell coming from your incision or puncture site. ? You have a fever. ? Your incision or puncture site opens up. Get help right away if: ? You develop a rash. ? You have difficulty breathing. Summary ? After your procedure it is common to have mild pain, swelling, redness, or discomfort in your scrotum. ? Avoid physical activity and exercise that requires a lot of energy for the first 2 days after surgery. ? Put ice on the injured area. Leave the ice on for 20 minutes, 2?3 times a day. ? Do not drive for 24 hours if you were given a sedative to help you relax. This information is not intended to replace advice given to you by your health care provider. Make sure you discuss any questions you have with your health care provider. Document Released: 09/10/2005 Document Revised: 02/03/2018 Document Reviewed: 05/20/2017 [employer] Patient Education ? 2020 [employer]. [facility] Urology Office/Clinic Noteon 08-15-2020 Urology Office/Clinic Note Chief Complaint PO VAS HPI Staff Pt is here for a PO Vasectomy done 07/25/20. Pt denies any swelling at this time. Pt does state that the sutures are bothering him more. Pt states that he has some slight discomfort with certain movements. 2 Sterile cups and directions/orders were sent to [facility] electronically. Dysuria: no pain or burning Incomplete bladder emptying: emptying Hematuria: denies any blood in urine Frequency: normal Urgency: none Nocturia: none Stream: strong stream Flank pain: non e Sexual complaints: incision healing well History of Present Illness Reviewed vasectomy op and path report. There have been no associated fever, chills, flank pain or blood in the urine. Pt. denies any pain/burning with urination at this time. Review of Systems PHQ Score Initial Depression Screen Score: 0 ROS - Provider Constitutional: denies weight loss, denies hot flashes. Eyes: denies eye problems. Gastrointestinal: denies nausea, denies vomiting. Cardiovascular: denies chest pain or angina. Integumentary: no dryness Musculoskeletal: denies musculoskeletal symptoms. ENMT: denies otolaryngeal symptoms. Respiratory: no shortness of breath. Heme/Lymph: denies easy bleeding tendency, denies easy bruising tendency. Psychiatric: no confusion, no anxiety. Genitourinary: denies dysuria, denies hematuria, denies discharge, denies urinary frequency, denies urinary hesitancy, denies nocturia, denies incontinence, denies genital sores, denies decreased libido, and denies erectile dysfunction. Physical Exam Vitals & Measurements HT: 172.0 cm HT: 172 cm WT: 90.0 kg WT: 90 kg BMI: 30.42 General Appearance: alert, no distress, well nourished, well developed male. Genitourinary: normal scrotum, normal testes, normal urethra, normal epididymis, normal vas deferens/spermatic cord. Flank Pain: none. Bladder: nonpalpable. Assessment/Plan 1. Encounter for postvasectomy sperm count (Z30.8: Encounter for other contraceptive management) S/p vasectomy 07/25/20. Pt. is healing well and is aware that he is not sterile until he has two negative semen analysis which will be checked after about two months and after 20-30- ejaculations. Pt. should deliver the semen specimen to the lab within 30 min. of ejaculation and he will call one week later to get the results. All questions/concerns were discussed. Pt. to call the office if heencounters any issues prior. Pt. acknowledges understanding. I have reviewed the previous health record information and history for this pt. from Dr. Douglas. Follow-up With When Contact Information NATIVIDAD BLAKE, Rodo Luna, URL [address] [place] [address]- [phone] Additional Instructions: prn Patient Education Vasectomy, Care After I, Shital Goode , personally scribed for Dr. Douglas on 08/15/2020 09:30:43. . Documentation recorded by the scribe, Shital Goode, accurately reflects the services(s) I performed and decisions made by me. Authenticated by Dr. Douglas on 08/15/2020 09:31:25. Problem List/Past Medical History Ongoing Head injury Headache Herpes Vasectomy evaluation Historical No qualifying data Procedure/Surgical History Bilateral vasectomy (07/25/2020), Tonsillectomy. Medications acetaminophen-butalb ital 325 mg-50 mg oral tablet, Oral, q4hr omeprazole 40 mg Cap-DR, Oral, Daily valacyclovir 1 g Tab, Oral, BID Allergies No Known Allergies Social History Alcohol - Low Risk, 03/31/2020 Tobacco - Denies Tobacco Use, 03/31/2020 Former smoker, quit more than 30 days ago Tobacco Use:., 08/15/2020 Former smoker, quit more than 30 days ago Tobacco Use:., 03/31/2020 Family History Heart disease: Grandparent. Immunizations Vaccine Date Status Comments influenza virus vaccine, inactivated - Not Given Patient Refuses Normal [facility] Comment on above: Result Comment: Elec tronically Signed By: Rodo DOUGLAS MD\.br\Date and Time Signed: 08/15/20 09:31 EDT\.br\Electronically Co-Signed By: Shital Goode MA\.br\Date and Time Co-Signed: 08/15/20 09:30 EDT Pathology Noteon 08-04-2020 Pathology Note [id number]# 1.00CD:127 Normal [facility] Operative Reporton Operative Report [id number]#1.00CD:127 Normal [facility] Ambulatory Clinical Summaryo n 04-03-2020 Ambulatory Clinical Summary {[id number] Normal [facility] Formson 04-01-2020 Forms [id number] #1.00CD:127 Normal [facility] Urology Office/Clinic Noteon 03-31-2020 Urology Office/Clinic Note Chief Complaint vasectomy consult HPI Staff Pt is here for vasectomy consult. Pt states no issues at this time. Dysuria: no Incomplete bladder emptying: no Hematuria: no Frequency: no Urgency: no Nocturia: no Stream: moderate Leaking: no Post void dripping: no Wearing pads/ Depends: no Urge incontinence: no Stress incontinence: no Incontinence without Sensory Awareness: no Abdominal pain: no Flank pain: no Sexual complaints: no History of Present Illness Reviewed urine and [employer]. There have been no associated fever, chills, flank pain or blood in the urine. Pt. denies any pain/burning with urination at this time. Review of Systems PHQ Score Initial Depression Screen Score: 0 ROS - Provider Constitutional: denies weight loss, denies hot flashes. Eyes: denies eye problems. Gastrointestinal: denies nausea, denies vomiting. Cardiovascular: denies chest pain or angina. Integumentary: no dryness Musculoskeletal: denies musculoskeletal symptoms. ENMT: denies otolaryngeal symptoms. Respiratory: no shortness of breath. Heme/Lymph: denies easy bleeding tendency, denies easy bruising tendency. Psychiatric: no confusion, no anxiety. Genitourinary: denies dysuria, denies hematuria, denies discharge, denies urinary frequency, denies urinary hesitancy, denies nocturia, denies incontinence, denies genital sores, denies decreased libido, and denies erectile dysfunction. Physical Exam Vitals & Measurements HR: 78(Peripheral) RR: 16 BP: 130/86 HT: 172 cm HT: 172.0 cm WT: 91 kg WT: 91.0 kg BMI: 30.76 General Appearance: alert, no distress, well nourished, well developed male. Head: normocephalic . Eyes: normal orbit and globe. ENMT: normal examination of external ears. Chest: Lungs CTA, respirations non labored. Cardiovascular: regular rate and rhythm. Abdomen: soft, non distended, no tenderness, no mass or organomegaly, no hernia. Genitourinary: normal scrotum, normal testes, normal urethra, normal epididymis, normal vas deferens/spermatic cord. Flank Pain: none. Bladder: nonpalpable. Penis: normal shaft, normal glans. Lymph Nodes: unremarkable palpation of the cervical area. Skin: warm, dry, no bruising. Psychiatric: cooperative, affect appropriate for age, normal judgement, euthymic mood. Assessment/Plan 1. Vasectomy evaluation (Z30.09: Encounter for other general counseling and advice on contraception) Pt. is doing well overall w/ his urination at this time w/ no bothersome symptoms. Will schedule Vasectomy. The procedural risks, benefits, details, and treatment alternatives of sterilization have been discussed with the patient today. He understands this procedure is considered permanent, even though vasectomy reversals can be performed. There is no guarantee of successful reversal resulting in , however. Risks discussed include bleeding, infection, failure with in about 1:2500, post-vasectomy syndrome (chronic pain in the testicle or scrotum), possible association with prostate cancer development in the future, and erection problems, among others. Despite these risks, he wishes to proceed. He also understands that he is not considered sterile until a negative semen sample has been received after about 2-3 months after the vasectomy. Full informed consent has been obtained. Will order Local anesthesia. I have reviewed the previous health record information and history for this pt. from Dr. Douglas. Follow-up With When Contact Information NATIVIDAD BLAKE, Rodo Luna [address] [place] [address] [place] [address]- [phone] Additional Instructions: Patient Education Vasectomy I, Shital Goode , personally scribed for Dr. Douglas on 03/31/2020 13:55:51. . Documentation recorded by the scribe, Shital Goode, accurately reflects the services(s) I performed and decisions made by me. Authenticated by Dr. Douglas on 03/31/2020 13:58:39. Problem List/Past Medical History Ongoing Head injury Headache Herpes Vasectomy evaluation Historical No qualifying data Procedure/Surgical History Tonsillectomy. Medications acetaminophen-butalb ital 325 mg-50 mg oral tablet, Oral, q4hr omeprazole 40 mg Cap-DR, Oral, Daily valacyclovir 1 g Tab, Oral, BID Allergies No Known Allergies Social History Alcohol - Low Risk, 03/31/2020 Tobacco - Denies Tobacco Use, 03/31/2020 Former smoker, quit more than 30 days ago Tobacco Use:., 03/31/2020 Family History Heart disease: Grandparent. Immunizations Vaccine Date Status Comments influenza virus vaccine, inactivated - Not Given Patient Refuses Lab Results Ambulatory Point of Care Results Bilirubin Urine Dipstick: Negative (03/31/20 13:28:00) Blood Urine Dipstick: Negative (03/31/20 13:28:00) Glucose Urine Dipstick: Negative (03/31/20 13:28:00) Ketones Urine Dipstick: Negative (03/31/20 13:28:00) Leukocytes Urine Dipstick: Negati (more content not included)... Normal [facility] Comment on above: Result Comment: Elec tronically Signed By: Rodo DOUGLAS MD\.br\Date and Time Signed: 03/31/20 13:58 EST\.br\Electronically Co-Signed By: Shital Goode MA\.br\Date and Time Co-Signed: 03/31/20 13:57 EST Vital Signs Date Time Vital Sign Value Performing Clinician Facility 04-30-2024 09:02-0500 Body mass index (BMI) [Ratio] 31.32 kg/m2 Landon Galvez MD Work Phone: [facility] 04-30-2024 09:02-0500 Body temperature 98.01 [degF] Landon Galvez MD Work Phone: [facility] 04-30-2024 09:02-0500 Body weight 93.44 kg Landon Galvez MD Work Phone: [facility] 04-30-2024 09:02-0500 Diastolic blood pressure 80 mm[Hg] Landon Galvez MD Work Phone: [facility] 04-30-2024 09:02-0500 Heart rate 80 /min Landon Galvez MD Work Phone: [facility] 04-30-2024 09:02-0500 SaO2% (BldA) [Mass fraction] 96 % Landon Galvez MD Work Phone: [facility] 04-30-2024 09:02-0500 Systolic blood pressure 122 mm[Hg] Landon Galvez MD Work Phone: [facility] 03-29-2024 09:08-0500 Body height 172.7 cm Landon Galvez MD Work Phone: [facility] 03-29-2024 09:08-0500 Body mass index (BMI) [Ratio] 31.17 kg/m2 Landon Galvez MD Work Phone: [facility] 03-29-2024 09:08-0500 Body temperature 97.81 [degF] Landon Galvez MD Work Phone: [facility] 03-29-2024 09:08-0500 Body weight 92.99 kg Landon Galvez MD Work Phone: [facility] 03-29-2024 09:08-0500 Diastolic blood pressure 62 mm[Hg] Landon Galvez MD Work Phone: [facility] 03-29-2024 09:08-0500 Heart rate 98 /min Landon Galvez MD Work Phone: [facility] 03-29-2024 09:08-0500 Respiratory rate 18 /min Landon Galvez MD Work Phone: [facility] 03-29-2024 09:08-0500 SaO2% (BldA) [Mass fraction] 98 % Landon Galvez MD Work Phone: [facility] 03-29-2024 09:08-0500 Systolic blood pressure 106 mm[Hg] Landon Galvez MD Work Phone: [facility] 03-12-2024 09:48-0500 Body height 172.7 cm Landon Galvez MD Work Phone: [facility] 03-12-2024 09:48-0500 Body mass index (BMI) [Ratio] 31.93 kg/m2 Landon Galvez MD Work Phone: [facility] 03-12-2024 09:48-0500 Body temperature 96.21 [degF] Landon Galvez MD Work Phone: [facility] 03-12-2024 09:48-0500 Body weight 95.25 kg Landon Galvez MD Work Phone: [facility] 03-12-2024 09:48-0500 Diastolic blood pressure 70 mm[Hg] Landon Galvez MD Work Phone: [facility] 03-12-2024 09:48-0500 Heart rate 86 /min Landon Galvez MD Work Phone: [facility] 03-12-2024 09:48-0500 Respiratory rate 20 /min Landon Galvez MD Work Phone: [facility] 03-12-2024 09:48-0500 SaO2% (BldA) [Mass fraction] 97 % Landon Galvez MD Work Phone: [facility] 03-12-2024 09:48-0500 Systolic blood pressure 116 mm[Hg] Landon Galvez MD Work Phone: [facility] 12-12-2023 19:11-0400 Body height 170.18 cm MD Landon Galvez Work Phone: [facility] 12-12-2023 19:11-0400 Body temperature 98.1 [degF] MD Landon Galvez Work Phone: [facility] 12-12-2023 19:11-0400 Body weight 90 kg MD Landon Galvez Work Phone: [facility] 12-12-2023 19:11-0400 Diastolic blood pressure 90 mm[Hg] MD Landon Galvez Work Phone: [facility] 12-12-2023 19:11-0400 Heart rate 90 /min MD Landon Galvez Work Phone: [facility] 12-12-2023 19:11-0400 Respiratory rate 18 /min MD Landon Galvez Work Phone: [facility] 12-12-2023 19:11-0400 SaO2% (BldA) [Mass fraction] 97 % MD Landon Galvez Work Phone: [facility] 12-12-2023 19:11-0400 Systolic blood pressure 136 mm[Hg] MD Landon Galvez Work Phone: [facility] 07-18-2022 14:25-0400 Body height 172.72 cm Carolynn Hernandez Other [employer] Other 07-18-2022 14:25-0400 Body mass index (BMI) [Ratio] 29.01 kg/m2 Carolynn Hernandez Other [employer] Other 07-18-2022 14:25-0400 Body temperature 98.8 [degF] Carolynn Mary Other [employer] Other 07-18-2022 14:25-0400 Body weight 86.55 kg Carolynn Hernandez Other [employer] Other 07-18-2022 14:25-0400 Diastolic blood pressure 86 mm[Hg] Carolynn Hernandez Other [employer] Other 07-18-2022 14:25-0400 Respiratory rate 16 /min Carolynn Hernandez Other [employer] Other 07-18-2022 14:25-0400 SaO2% (BldA) [Mass fraction] 98 % Carolynn Hernandez Other [employer] Other 07-18-2022 14:25-0400 Systolic blood pressure 115 mm[Hg] Carolynn Hernandez Other [employer] Other Encounters Encounter Date Encounter Type Care Provider Facility Start: 04-30-2024 End: 04-30-2024 [employer] Landon Galvez MD Work Phone: [facility] Start: 04-30-2024 End: 04-30-2024 [employer] have it! Landon Galvez MD Work Phone: [facility] Start: 04-30-2024 End: 04-30-2024 ambulatory LANDON GALVEZ Not Available Start: 04-30-2024 End: 04-30-2024 Office outpatient visit 25 minutes Landon Galvez MD Work Phone: [facility] Comment on above: Major depressive dis order, recurrent episode, moderate (CMS/HCC) (Primary Dx); Generalized anxiety disorder (CMS/HCC); Degeneration of intervertebral disc of lumbar region with discogenic back pain and lower extremity pain; Persistent insomnia; Adult hypothyroidism (CMS/HCC) Start: 04-11-2024 End: 04-11-2024 Refill Landon Galvez MD Work Phone: [facility] Comment on above: DDD (degenerative di sc disease), lumbar Start: 03-29-2024 End: 03-29-2024 [employer] Landon Galvez MD Work Phone: [facility] Start: 03-29-2024 End: 03-29-2024 Bamboo [employer]sheet Landon Galvez MD Work Phone: [facility] Start: 03-29-2024 End: 03-29-2024 Office outpatient visit 25 minutes Landon Galvez MD Work Phone: [facility] Comment on above: Major depressive dis order, recurrent episode, moderate (CMS/HCC) (Primary Dx); Generalized anxiety disorder (CMS/HCC); Acute bronchitis due to other specified organisms Start: 03-29-2024 End: 03-29-2024 ambulatory LANDON GALVEZ Not Available Start: 03-23-2024 End: 03-23-2024 Orders Only Landon Galvez MD Work Phone: [facility] Comment on above: Major depressive dis order, recurrent episode, moderate (CMS/HCC) Start: 03-21-2024 ambulatory [facility] Start: 03-12-2024 End: 03-12-2024 Bamboo flowsheet Landon Galvez MD Work Phone: [facility] Start: 03-12-2024 End: 03-12-2024 Bamboo flowsheet Landon Galvez MD Work Phone: [facility] Start: 03-12-2024 End: 03-12-2024 ambulatory LANDON GALVEZ Not Available Start: 03-12-2024 End: 03-12-2024 Office outpatient visit 25 minutes Landon Galvez MD Work Phone: [facility] Comment on above: Major depressive dis order, recurrent episode, moderate (CMS/HCC) (Primary Dx); Generalized anxiety disorder (CMS/HCC); Adult hypothyroidism (CMS/HCC); Degeneration of intervertebral disc of lumbar region with discogenic back pain and lower extremity pain; DDD (degenerative disc disease), lumbar; Paroxysmal atrial fibrillation (CMS/HCC); Paroxysmal SVT (supraventricular tachycardia) (CMS/HCC) Start: 03-08-2024 End: 03-08-2024 Refill Landon Galvez MD Work Phone: [facility] Comment on above: Testicular hypofunct ion Start: 02-09-2024 End: 02-09-2024 Refill Landon Galvez MD Work Phone: [facility] Comment on above: DDD (degenerative di sc disease), lumbar Start: 01-27-2024 ambulatory [facility] Start: 01-11-2024 ambulatory [facility] Start: 01-10-2024 End: 01-10-2024 Refill Landon Galvez MD Work Phone: [facility] Comment on above: DDD (degenerative di sc disease), lumbar Start: 12-21-2023 End: 12-21-[address] [facility] Start: 12-13-2023 End: 12-13-2023 Orders Only Landon Galvez MD Work Phone: [facility] Comment on above: Major depressive dis order, recurrent episode, moderate (CMS/HCC) (Primary Dx) Start: 12-12-2023 End: 12-12-2023 Emergency department patient visit MD Landon Galvez Work Phone: [facility] Work Phone: Start: 12-06-2023 End: 12-06-[address] [facility] Start: 12-02-2023 End: 12-02-2023 Refill Landon Galvez MD Work Phone: [facility] Comment on above: DDD (degenerative di sc disease), lumbar Start: 11-25-2023 ambulatory [facility] Start: 11-23-2023 End: 11-23-[address] [facility] Start: 11-22-2023 End: 11-22-2023 Refill Landon Galvez MD Work Phone: [facility] Comment on above: Testicular hypofunct ion Start: 11-01-2023 End: 11-01-2023 Telephone encounter Rcoío Chao [facility] Comment on above: Med Refill Start: 10-04-2023 ambulatory [facility] Start: 08-30-2023 ambulatory [facility] Start: 08-24-2023 ambulatory [facility] Start: 08-10-2023 ambulatory [facility] Start: 07-05-2023 Patient encounter procedure Rocío Chao [facility] Start: 07-05-2023 End: 07-05-2023 ambulatory LANDON GALVEZ Not Available Start: 06-29-2023 ambulatory [facility] Start: 12-28-2022 ambulatory Shasta Bidr PA-C [facility] Start: 09-29-2022 End: 09-30-2022 ambulatory Landon Galvez MD Facility:[facility] Start: 07-29-2022 End: 07-30-2022 ambulatory Landon Galvez MD [facility] Start: 07-22-2022 ambulatory NARENDRANATH LAKSHMIPATHY . Facility:[facility] Start: 07-18-2022 End: 07-18-2022 ambulatory Carolynn Hernandez Other [employer] Other Start: 07-18-2022 Office outpatient ne w 20 minutes Carolynn Hernandez [facility] Start: 07-06-2022 End: 07-06-2022 ambulatory NARENDRANATH LAKSHMIPATHY . Facility:[facility] Start: 06-24-2022 End: 06-25-2022 ambulatory NARENDRANATH LAKSHMIPATHY . Facility:[facility] Start: 06-08-2022 End: 06-08-[address] LANDON GALVEZ Facility:[facility] Start: 05-27-2022 End: 05-28-[address] LANDON GALVEZ Facility:[facility] Start: 05-04-2022 End: 05-05-[address] LANDON GALVEZ Facility:[facility] Start: 03-07-2022 End: 03-13-[address] LANDON GALVEZ Facility:[facility] Start: 02-18-2022 End: 02-19-[address] LANDON GALVEZ Facility:[facility] Start: 02-12-2022 End: 03-06-[address] LANDON GALVEZ Facility:[facility] Start: 02-08-2022 End: 02-08-[address] LANDON GALVEZ Facility:[facility] Start: 10-13-2021 End: 10-14-[address] LANDON GALVEZ Facility:[facility] Start: 08-17-2021 Encounter for preprocedural laboratory examination DIAZ BOWSER [facility] Start: 08-17-2021 End: 08-18-2021 ambulatory Diaz Bowser Facility:[facility] Start: 08-14-2021 End: 08-15-[address] LANDON GALVEZ Facility:[facility] Start: 08-14-2021 End: 08-15-2021 Encounter for preprocedural laboratory examination DR LANDON GALVEZ Facility:[facility] Start: 07-21-2021 End: 07-22-[address] LANDON GALVEZ Facility:[facility] Start: 06-09-2021 End: 06-09-2021 ambulatory MARISELADenise MARIANO Facility:[facility] Plan of Treatment Date Care Activity Detail Author Start: 07-26-2024 End: 07-26-2024 Patient encounter procedure 07/26/2024 9:15 AM EDT Office Visit [facility] [address] [place] [address] Landon Galvez MD [address] [place] [id number] [facility] Start: 06-11-2024 End: 06-11-2024 Patient encounter procedure 06/11/2024 8:30 AM EDT Office Visit [facility] [address] [place] [address] Landon Galvez MD [address] [place] [id number] [facility] Start: 04-30-2024 End: 04-30-2025 Thyrotropin [Units/volume] in Serum or Plasma TSH Lab Routine Adult hypothyroidism (CMS/HCC) Expected: 04/30/2024 (Approximate), Expires: 04/30/2025 [facility] Work Phone: Comment on above: Expected: 04/30/2024 (Approximate), Expires: 04/30/2025 Start: 04-30-2024 End: 04-30-2025 Thyroxine (T4) free [Mass/volume] in Serum or Plasma T4, free Lab Routine Adult hypothyroidism (CMS/HCC) Expected: 04/30/2024 (Approximate), Expires: 04/30/2025 [facility] Comment on above: Expected: 04/30/2024 (Approximate), Expires: 04/30/2025 Start: 04-30-2024 End: 04-30-2025 Triiodothyronine (T3) Free [Mass/volume] in Serum or Plasma T3, free Lab Routine Adult hypothyroidism (CMS/HCC) Expected: 04/30/2024 (Approximate), Expires: 04/30/2025 [facility] Comment on above: Expected: 04/30/2024 (Approximate), Expires: 04/30/2025 Start: 04-30-2024 End: 04-30-2024 Patient encounter procedure 04/30/2024 9:00 AM EST Office Visit [facility] [address] [place] [address] Landon Galvez MD [address] [place] [address] [facility] Start: 03-12-2024 End: 03-12-2024 Patient encounter procedure 03/12/2024 9:30 AM EST Office Visit [facility] [address] [place] [address] Landon Galvez MD [address] [place] [phone] [facility] Start: 01-10-2024 End: 01-10-2024 Patient encounter procedure 01/10/2024 9:00 AM EST [facility] [address] [place] [phone] Landon Galvez MD [address] [place] [address] [facility] Start: 12-12-2023 End: 12-12-2023 [facility] Start: 11-06-2023 Influenza vaccination Influenza Vacc ine (#1) [facility] Albumin/Globulin ratio [facility] Anion gap measurement [facility] Basophils [#/volume] in Blood by Automated count [facility] Basophils/100 leukoc ytes in Blood by Automated count [facility] [facility] Eosinophils/100 leuk ocytes in Blood by Automated count [facility] Erythrocyte distribu tion width [Ratio] by Automated count [facility] Erythrocytes [#/volu me] in Blood [facility] Ethanol [Mass/volume ] in Serum or Plasma [facility] Globulin [Mass/volum e] in Serum [facility] Hematocrit [Volume Fraction] of Blood [facility] Hemoglobin [Mass/vol ume] in Blood [facility] Leukocytes [#/volume ] corrected for nucleated erythrocytes in Blood by Automated coun [facility] Leukocytes [#/volume ] in Blood [facility] Lymphocytes [#/volum e] in Blood by Automated count [facility] Lymphocytes/100 leuk ocytes in Blood by Automated count [facility] MCH [Entitic mass] b y Automated count [facility] MCHC [Mass/volume] b y Automated count [facility] MCV [Entitic volume] by Automated count [facility] Monocytes [#/volume] in Blood by Automated count [facility] Monocytes/100 leukoc ytes in Blood by Automated count [facility] Neutrophils [#/volum e] in Blood by Automated count [facility] Neutrophils/100 leuk ocytes in Blood by Automated count [facility] Nucleated erythrocyt es [Presence] in Blood by Automated count [facility] Patient referral [facility] Work Phone: Platelet mean volume [Entitic volume] in Blood by Automated count [facility] Platelets [#/volume] in Blood [facility] Payers Date Payer Category Payer Self-pay [id number] 2022 [facility] BCBS [id number] 2022 Unknown 2022 Unknown [id number] 2020 Private Health Insurance 2019 Unknown [id number] 1980 Unknown [id number] 2..840.1.167619.3.579.2. 647 1980 Unknown [id number] 2.16.840.1.759444.3.579.2. 647 1980 Unknown [id number] 2.16.840.1.844256.3.579.2. 593 1980 Unknown [id number] 2.16.840.1.984094.3.579.2. 593 1980 Unknown [id number] 2.16.840.1.771959.3.579.2. 593 1982 Unknown [id number] 2.840.1.520880.3.579.2. 593 1980 Unknown [id number] 2.840.1.223549.3.579.2. 593 1982 Unknown [id number] 2.840.1.075876.3.579.2. 593 1982 Unknown [id number] 840.1.004039.3.579.2. 593 1982 Unknown [id number] 2.840.1.367447.3.579.2. 593 1982 Unknown [id number] .1.457790.3.579.2. 593 1982 Unknown [id number] 04.22.830.1.039560.3.579.2. 593 1982 Unknown [id number] .1.327831.3.579.2. 593 1982 Unknown [id number] .1.638856.3.579.2. 593 1982 Unknown [id number] .1.842902.3.579.2. 593 1982 Unknown [id number] .1.185104.3.579.2. 196 1982 Unknown [id number] 04.22.830.1.076490.3.579.2. 196 1982 Unknown [id number] .1.484973.3.579.2. 196 1982 Unknown [id number] 04.22.830.1.822375.3.579.2. 1259 1982 Unknown [id number] 840.1.959698.3.579.2. 1259 1982 Unknown [id number] 840.1.398008.3.579.2. 1259 1982 Unknown [id number] 2.16.840.1.493241.3.579.2. 1259 1959 Private Health Insurance [id number] Private Health Insurance [id number] Unknown [id number] 2.16.840.1.845231.3.579.2. 531 Unknown [id number] 2.16.840.1.986186.3.579.2. 531 Social History Date Type Detail Facility Start: 07-05-2023 End: 04-30-2024 Sex Assigned At [facility] Other Start: 12-12-2023 Tobacco smoking status [facility] Smoker (finding) [facility] Start: 1980 Sex Assigned At Male F [facility] Start: 07-05-2023 Tobacco smoking status [facility] Never smoked tobacco [facility] Start: 07-05-2023 Tobacco use and exposure Smokeless tobacco non-user [facility] Start: 07-05-2023 End: 04-30-2024 History of Social function [facility] Start: 1980 Sex assigned at Not on file [facility] Clinical Notes 03-31-2020 to 04-30-2024 Landon Galvez MD - 04/30/2024 9:35 AM Lucille Galvez MD - 04/30/2024 9:35 AM Lucille Galvez MD - 04/30/2024 9:35 AM Lucille Galvez MD - 04/30/2024 9:34 AM EST Note Date & Type Note Facility 04-30-2024 History of Presen t illness Narrative Associated Problem(s): Persistent insomnia Sleeping well with medication and continue. Associated Problem(s): Major depressive disorder, recurrent episode, moderate (CMS/HCC) Symptoms tolerable with wellbutrin and continue. Associated Problem(s): Generalized anxiety disorder (CMS/HCC) Symptoms tolerable with wellbutrin and continue. Use xanax PRN. Associated Problem(s): DDD (degenerative disc disease), lumbar Pain stable and use norco PRN. Follow with pain management for injection. Associated Problem(s): Adult hypothyroidism (CMS/HCC) Repeat labs. Images from the original note were not included. Subjective Patient ID: Wilton Brennan is a 43 y.o. male who presents for No chief complaint on file.. Follow up depression, anxiety, insomnia, and back pain. Patient improved today. Overall depression improved. Occasional symptoms and at times down and sad but tolerable. Anxiety stable. Not as stressed out or overwhelmed. Not as nervous or worry as much. Not as stanley or irritable. Sleeping okay with medication. Some nights hard time falling asleep. Back pain unchanged. Continues to have pain in low back and across top hips. Pain into right gluteal region and down leg. Using norco PRN and helps. Review of Systems Constitutional: Negative for fatigue. Respiratory: Negative for cough, shortness of breath and wheezing. Cardiovascular: Negative for chest pain and palpitations. Gastrointestinal: Negative for abdominal pain, diarrhea, nausea and vomiting. Genitourinary: Negative for dysuria. Objective Physical Exam Constitutional: General: He is not in acute distress. Appearance: Normal appearance. HENT: Head: Normocephalic. Right Ear: Tympanic membrane and ear canal normal. Left Ear: Tympanic membrane and ear canal normal. Eyes: Extraocular Movements: Extraocular movements intact. Pupils: Pupils are equal, round, and reactive to light. Cardiovascular: Rate and Rhythm: Normal rate and regular rhythm. Heart sounds: No murmur heard. No friction rub. No gallop. Pulmonary: Breath sounds: Normal breath sounds. No wheezing, rhonchi or rales. Abdominal: General: Bowel sounds are normal. There is no distension. Palpations: Abdomen is soft. Tenderness: There is no abdominal tenderness. There is no guarding or rebound. Musculoskeletal: Left lower leg: No edema. Neurological: Mental Status: He is alert. Assessment/Plan Problem List Items Addressed This Visit DDD (degenerative disc disease), lumbar Pain stable and use norco PRN. Follow with pain management for injection. Generalized anxiety disorder (CMS/HCC) Symptoms tolerable with wellbutrin and continue. Use xanax PRN. Relevant Medications ALPRAZolam (Xanax) 0.5 MG tablet Persistent insomnia Sleeping well with medication and continue. Major depressive disorder, recurrent episode, moderate (CMS/HCC) - Primary Symptoms tolerable with wellbutrin and continue. Adult hypothyroidism (CMS/HCC) Repeat labs. Relevant Orders TSH T4, free T3, free documented in this encounter [facility] 03-29-2024 History of Presen t illness Narrative Associated Problem(s): Major depressive disorder, recurrent episode, moderate (CMS/HCC) Worsening symptoms and wellbutrin increased last week. Warned will take 2-3 weeks to notice improvement in mood. Associated Problem(s): Generalized anxiety disorder (CMS/HCC) Worsening symptoms and wellbutrin increased last week. Warned will take 2-3 weeks to notice improvement in mood. Start xanax PRN. Associated Problem(s): Acute bronchitis due to other specified organisms Take antibiotics for 5 days and will be in system 10-12 days. Use sudafed or other decongestants as needed. Use robitussin or robittussin-DM for cough. Use afrin for congestion but no longer than 3 days. Use mucinex to bring up phlegm. Use motrin or tylenol for fever, aches or pains. Increase fluid intake and rest. Should improve over next 5-7 days and if no better or worse call office. Images from the original note were not included. Subjective Patient ID: Wilton Brennan is a 43 y.o. male who presents for Follow-up (Medication adjustment/ Cold for about a month). C/o worsening depression and anxiety over the past few weeks. Down, sad, and no motivation. Not want to be around others. Severe anxiety. Nervous and worry all the time. Stressed out and overwhelmed. Thought racing and hard to clear mind. Stanley, irritable and snapping at others. Easily upset and overreact. Feels bad after snapping at family. Increased wellbutrin last week. Using hydroxyzine PRN and not helping. C/o cough, congestion, and rhinorrhea x several weeks. Afebrile. Severe fatigue and no energy. Mild cough dry and nonproductive. Denies chest tightness or SOB. CARABALLO and sinus pressure in forehead and cheeks along with postnasal drip. Ears plugged and popping. Sore throat and pain to swallow. Mild nausea. recently sick. Using OTC medication and mild relief. No improvement in symptoms since onset. Review of Systems Constitutional: Negative for fatigue. Respiratory: Negative for cough, shortness of breath and wheezing. Cardiovascular: Negative for chest pain and palpitations. Gastrointestinal: Negative for abdominal pain, diarrhea, nausea and vomiting. Genitourinary: Negative for dysuria. Objective Physical Exam Constitutional: General: He is not in acute distress. Appearance: Normal appearance. HENT: Head: Normocephalic. Right Ear: Tympanic membrane and ear canal normal. Left Ear: Tympanic membrane and ear canal normal. Eyes: Extraocular Movements: Extraocular movements intact. Pupils: Pupils are equal, round, and reactive to light. Cardiovascular: Rate and Rhythm: Normal rate and regular rhythm. Heart sounds: No murmur heard. No friction rub. No gallop. Pulmonary: Breath sounds: Normal breath sounds. No wheezing, rhonchi or rales. Abdominal: General: Bowel sounds are normal. There is no distension. Palpations: Abdomen is soft. Tenderness: There is no abdominal tenderness. There is no guarding or rebound. Musculoskeletal: Left lower leg: No edema. Neurological: Mental Status: He is alert. Assessment/Plan Problem List Items Addressed This Visit Generalized anxiety disorder (CMS/HCC) Worsening symptoms and wellbutrin increased last week. Warned will take 2-3 weeks to notice improvement in mood. Start xanax PRN. Relevant Medications ALPRAZolam (Xanax) 0.25 MG tablet Major depressive disorder, recurrent episode, moderate (CMS/HCC) - Primary Worsening symptoms and wellbutrin increased last week. Warned will take 2-3 weeks to notice improvement in mood. Acute bronchitis due to other specified organisms Take antibiotics for 5 days and will be in system 10-12 days. Use sudafed or other decongestants as needed. Use robitussin or robittussin-DM for cough. Use afrin for congestion but no longer than 3 days. Use mucinex to bring up phlegm. Use motrin or tylenol for fever, aches or pains. Increase fluid intake and rest. Should improve over next 5-7 days and if no better or worse call office. Relevant Medications azithromycin (Zithromax) 250 MG tablet documented in this encounter [facility] 03-29-2024 Miscellaneous Notes Addended by: LANDON GALVEZ on: 03/29/2024 09:42 AM Modules accepted: Orders documented in this encounter [facility] 03-29-2024 Note Addended by: LANDON GALVEZ on: 03/29/2024 09:42 AM Modules accepted: Orders [facility] 03-29-2024 Note Addended by: LANDON GALVEZ on: 03/29/2024 09:42 AM Modules accepted: Orders [facility] 03-12-2024 History of Presen t illness Narrative Associated Problem(s): Paroxysmal SVT (supraventricular tachycardia) (CMS/HCC) No symptoms and monitor. Associated Problem(s): Paroxysmal atrial fibrillation (CMS/HCC) No symptoms and monitor. Associated Problem(s): Major depressive disorder, recurrent episode, moderate (CMS/HCC) Occasional symptoms but tolerable and follow with psychiatry. Associated Problem(s): Generalized anxiety disorder (CMS/HCC) Occasional symptoms but tolerable and follow with psychiatry. Associated Problem(s): DDD (degenerative disc disease), lumbar Pain stable and use norco PRN. Follow with pain management for injection. Associated Problem(s): Adult hypothyroidism (CMS/HCC) Resume medication and repeat labs next visit. Images from the original note were not included. Subjective Patient ID: Wilton Brennan is a 43 y.o. male who presents for Follow-up. Follow up depression, anxiety, back pain, insomnia, and low testosterone. Developed severe depression and SI and to ER in December. Following with psychiatry and in counseling. On wellbutrin and remeron and doing well. Stopped drinking which helps. Occasional symptoms and at times down and sad but tolerable. Anxiety stable. Not as stressed out or overwhelmed. Not as nervous or worry as much. Not as stanley or irritable. Sleeping okay with medication. Some nights hard time falling asleep. Psych adjusting medication. Back pain unchanged. Continues to have pain in low back and across top hips. Pain into right gluteal region and down leg. Seen by pain management and planned injections but lost insurance. Now new insurance and scheduled in few months. Using norco PRN and helps. Taking testosterone replacement and feels better. Less fatigue and strength improved. Review of Systems Constitutional: Negative for fatigue. Respiratory: Negative for cough, shortness of breath and wheezing. Cardiovascular: Negative for chest pain and palpitations. Gastrointestinal: Negative for abdominal pain, diarrhea, nausea and vomiting. Genitourinary: Negative for dysuria. Objective Physical Exam Constitutional: General: He is not in acute distress. Appearance: Normal appearance. HENT: Head: Normocephalic. Right Ear: Tympanic membrane and ear canal normal. Left Ear: Tympanic membrane and ear canal normal. Eyes: Extraocular Movements: Extraocular movements intact. Pupils: Pupils are equal, round, and reactive to light. Cardiovascular: Rate and Rhythm: Normal rate and regular rhythm. Heart sounds: No murmur heard. No friction rub. No gallop. Pulmonary: Breath sounds: Normal breath sounds. No wheezing, rhonchi or rales. Abdominal: General: Bowel sounds are normal. There is no distension. Palpations: Abdomen is soft. Tenderness: There is no abdominal tenderness. There is no guarding or rebound. Musculoskeletal: Left lower leg: No edema. Neurological: Mental Status: He is alert. Assessment/Plan Problem List Items Addressed This Visit DDD (degenerative disc disease), lumbar Pain stable and use norco PRN. Follow with pain management for injection. Relevant Medications HYDROcodone-acetaminophen ([place]) 10-325 MG tablet Generalized anxiety disorder (CMS/HCC) Occasional symptoms but tolerable and follow with psychiatry. Major depressive disorder, recurrent episode, moderate (CMS/HCC) - Primary Occasional symptoms but tolerable and follow with psychiatry. Paroxysmal atrial fibrillation (CMS/HCC) No symptoms and monitor. Adult hypothyroidism (CMS/HCC) Resume medication and repeat labs next visit. Relevant Medications levothyroxine (Synthroid) 75 MCG tablet Paroxysmal SVT (supraventricular tachycardia) (CMS/HCC) No symptoms and monitor. documented in this encounter [facility] 11-01-2023 Telephone encount er Note Refill sent. [facility] 11-01-2023 Miscellaneous Notes Formattin g of this note might be different from the original. Refill sent. Patient wants a refill on his norco but I couldn't find it in his chart maybe in alscripts documented in this encounter [facility] 11-01-2023 Telephone encount er Note Patient wants a refill on his norco but I couldn't find it in his chart maybe in alscripts [facility] 07-18-2022 Evaluation note Encounter Date Diagnosis Assessment Notes July, Sore throat (ICD-10 - J02.9) July, Viral upper respiratory infection (ICD-10 - J06.9) Viral upper respiratory infection: adult home care material was printed Drink plenty fluids, get plenty of rest. Take Tylenol or Motrin as needed for aches pains or fevers. Follow-up with your family physician if no improvement in 2 to 3 days [employer] Other 04-20-2023 NoteCONSULTATION CONSULTATION DATE: 06/24/2022 TO: Landon Galvez M.D. HISTORY: Patient returns today complaining of pain in his right buttock area, right lower extremity. He rates the pain as being 5-7/10 pain, sharp in character, increased with activity such as standing, walking and performing transitioning maneuvers. He feels most comfortable in the semi-recumbent position. He denies any change in bowel and bladder habits or new sensorimotor changes in the lower extremities. EXAM: Despite the patient not complaining of progressive weakness and numbness in the lower extremities, his examination did reveal hypoesthesia along the right L5 dermatome, mild weakness of the right EHL. Straight leg raise was positive at approximately 30 degrees. He had depressed right Achilles reflex. He had no signs consistent with myelopathy involving his lower extremities. IMPRESSION: Our impression is patient has chronic pain secondary to residual right L5 radicular process and disc displacement at L5-S1, associated with myofascial spasm. RECOMMENDATIONS: I have placed him on Zonegran 50 mg to 100 mg at h.s. To proceed with an L5-S1 epidural steroid injection under fluoroscopic guidance and I have asked him to consider neurosurgical consultation. We will facilitate the same. I have gone over the details of the procedure with the patient. All his questions were answered. He agrees to proceed with the outlined plan. As part of providing excellent, safe, comprehensive care, the following was completed at our patient's visit: 1. A medication reconciliation and review to ensure accurate knowledge of current/active medications, including asking our patients to inform us about any [id number] medications or herbal remedies/nutritional supplements/alternative remedies. 2. A review to specifically ensure our patients have had annual screening for: elevated body mass index (BMI, see intake chart for exact total), tobacco use, screening for depression, and screening for unhealthy alcohol use. When screening is concerning, patients are provided with education and the specific recommendation to discuss the concerning health issue and treatment options with their primary care provider.[facility] [id number] Note CONSULTATION CONSULTATION DATE: 05/27/2022 TO: Dr. Galvez CHIEF COMPLAINT: Includes severe right sided hip pain. HISTORY: He describes the pain as being 5-7/10 pain, burning in character with a sharp component; seems to increase with light touch to the area. He also reports standing and walking and performing transitioning maneuvers is quite uncomfortable. He feels most comfortable in the semi-recumbent position. He denies any change in bowel and bladder habits, and he denies any new sensorimotor changes in the lower extremity. In fact, he denies having any pain in his right lower extremity on today's visit. EXAMINATION: His examination is notable for the patient having no clinical radiculopathy on today's visit. Patient did have dysesthesia and hypoesthesia along the distribution of the right lateral cutaneous branch of the iliohypogastric nerve. Patient also had myofascial spasm of the lumbar paravertebral muscles. He had nothing to suggest facet loading pain clinically in the lumbar area. 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 He has no radiculopathy on examination on today's visit. RECOMMENDATIONS: I have recommended that he consider proceeding with a diagnostic right lateral cutaneous branch of the iliohypogastric nerve injection under fluoroscopic guidance. I have asked him to continue with baclofen, trazodone and [place]. He wants to avoid any further medications secondary for work and, hence, we did not prescribe any membrane stabilizers for the patient, either in the form of gabapentin, Lyrica or Zonegran. I have gone over the details of the procedure with the patient. All of his questions were answered. He agree to proceed with the outlined plan.[facility] 07-05-2021 History general Narrative - Reported* Type Description Date Medical History CARDIAC ISSUES A-FIB Surgical History LOOP RECORDER 07/2021 Hospitalization History SEE ABOVE [employer] Other 04-06-2022 NoteMR#: [id number] 2 [facility] Pt. Name: Wilton Brennan Admitted: 06/09/2021 Discharged: 06/09/2021 Date of : 1980 Physician: Marisela Mariano MD DISCHARGE SUMMARY CONSULTING SERVICES: Cardiology service. PRINCIPAL DIAGNOSIS: Atrial fibrillation with rapid ventricular response. SECONDARY DIAGNOSES: Mild transaminitis. HOSPITAL COURSE: The patient is a 41-year-old male, who presents as direct transfer from outside facility for atrial fibrillation with RVR. He was found to be in normal sinus rhythm; however, outside facility reported ventricular tachycardia, and therefore, the patient was placed on amiodarone infusion. This was discontinued by our Cardiology Service, who was consulted to assist in management. He underwent a transthoracic echocardiogram, which revealed mildly reduced left ventricle EF as well as stress test was unremarkable for any ischemia. The patient's electrolyte abnormalities were corrected daily. The patient was also found to have mild transaminitis, which is possibly secondary to alcohol. The patient was eventually discharged. DISPOSITION: Home. DISCHARGE MEDICATIONS: As per medication discharge paperwork. DISCHARGE INSTRUCTIONS: The patient instructed to follow up with PCP in 1 week. The patient instructed to obtain complete metabolic panel within 7 days for re-evaluation of transaminitis. If transaminitis is persisting, recommend outpatient workup for any underlying liver etiology. The patient instructed to take Xarelto as prescribed and monitor for any signs or symptoms of bleeding. The patient was also given prescription for flecainide, which he is instructed to take as needed if he has a sensation of palpation. He is instructed to take no more than 1 dose of flecainide within 24 hours. The patient will follow up with Cardiology Clinic as an outpatient in regard to the mildly reduced EF. Electronically Signed by: Marisela Mariano MD 06/12/2021 10:30 A Marisela Mariano MD I personally saw this patient on the day of the encounter, performed the roberts portion(s) of the service and participated in the management and confirm the resident's documentation. Please note there may be an additional personal documentation from me. Date Dict: 06/10/2021/03:17 P/Lalo Diez PA-C Date Trans: 06/10/2021 04:43 P/alex [id number] cc: Landon Galvez M.D. [address] [facility] [address] Shania Vargas M.D. R [facility]...do Not Send [address] [facility] [address] Primary Care Physician OfficeThe [facility]21 NoteUrology Vasectomy Vasectomy is a procedure in which the tube that carries sperm from the testicle to the urethra (vasdeferens) is tied. It may also be cut. The procedure blocks sperm from going through the vas deferens and penis during ejaculation. This ensures that sperm does not go into the vagina during sex. Vasectomy does not affect your sexual desire or performance, and does not prevent sexually transmitted diseases. Vasectomy is considered a permanent and very effective form of control (contraception). The decision to have a vasectomy should not be made during a stressful situation, such as after the loss of a or a divorce. You and your partner should make the decision to have a vasectomy when you are sure that you do not want children in the future. Tell a health care provider about: ? Any allergies you have. ? All medicines you are taking, including vitamins, herbs, eye drops, creams, and aasa-bvq-atbyzto medicines. ? Any problems you or family members have had with anesthetic medicines. ? Any blood disorders you have. ? Any surgeries you have had. ? Any medical conditions you have. What are the risks? Generally, this is a safe procedure. However, problems may occur, including: ? Infection. ? Bleeding and swelling of the scrotum. ? Allergic reactions to medicines. ? Failure of the procedure to prevent . There is a very small chance that the cut ends of the vas deferens may reconnect (recanalization), meaning that you could still make a woman . ? Pain in the scrotum that continues after healing from the procedure. What happens before the procedure? ? Ask your health care provider about: ? Changing or stopping your regular medicines. This is especially important if you are taking diabetes medicines or blood thinners. ? Taking qzwn-lns-vkfpwsk medicines, vitamins, herbs, and supplements. ? Taking medicines such as aspirin and ibuprofen. These medicines can thin your blood. Do not take these medicines unless your health care provider tells you to take them. ? You may be asked to shower with a germ-killing soap. ? Plan to have someone take you home from the hospital or clinic. What happens during the procedure? ? To lower your risk of infection: ? Your health care team will wash or sanitize their hands. ? Hair may be removed from the surgical area. ? Your scrotum will be washed with soap. ? You will be given one or more of the following: ? A medicine to help you relax (sedative). You may be instructed to take this a few hours before the procedure. ? A medicine to numb the area (local anesthetic). ? Your health care provider will feel (palpate) for your vas deferens. ? To reach the vas deferens, one of two methods may be used: ? A very small incision may be made in your scrotum. ? A punctured opening may be made in your scrotum, without an incision. ? Your vas deferens will be pulled out of your scrotum, and may be: ? Tied off. ? Cut and possibly burned (cauterized) at the ends to seal them off. ? The vas deferens will be put back into your scrotum. ? The incision or puncture opening will be closed with absorbable stitches (sutures). The sutures will eventually dissolve and will not need to be removed after the procedure. The procedure may vary among health care providers and hospitals. What happens after the procedure? ? You will be monitored to make sure that you do not experience problems. ? You will be asked not to ejaculate for at least 1 week after the procedure, or as long as directed. ? You will need to use a different form of contraception for 2?4 months after the procedure, until you have test results confirming that there are no sperm in your semen. ? You may be given scrotal support to wear, such as a jock strap or underwear with a supportive pouch. ? Do not drive for 24 hours if you were given a sedative to help you relax. Summary ? Vasectomy is considered a permanent and very effective form of control (contraception). Theprocedure prevents sperm from being released during ejaculation. ? Your scrotum will be numbed with medicine (local anesthetic) for the procedure. ? After the procedure, you will be asked not to ejaculate for at least 1 week, or for as long as directed. You will also need to use a different form of contraception until your health care provider examines you and finds that there are no sperm in your semen. This information is not intended to replace advice given to you by your health care provider. Make sure you discuss any questions you have with your health care provider. Document Released: 05/14/2003 Document Revised: 08/25/2018 Document Reviewed: 05/20/2017 [employer] Patient Education ? 2020 [employer] Evaluation noteNo assessment information availableSelect [facility] Work Phone: Evaluation note* Diagnosis Major depressive disorder, recurrent episode, moderate (CMS/HCC)- Primary Major depressive disorder, recurrent episode, moderate documented in this encounter [facility] HealthcareEvaluation note* Diagnosis Annual physical exam- Primary Routine general medical examination at a health care facility Major depressive disorder, recurrent episode, moderate (CMS/HCC) Major depressive disorder, recurrent episode, moderate Generalized anxiety disorder (CMS/HCC) Generalized anxiety disorder DDD (degenerative disc disease), lumbar Degeneration of lumbar or lumbosacral intervertebral disc DDD (degenerative disc disease), lumbar Degeneration of lumbar or lumbosacral intervertebral disc documented in this encounter [facility]* Diagnosis Annual physical exam- Primary Routine general medical examination at a health care facility Major depressive disorder, recurrent episode, moderate (CMS/HCC) Major depressive disorder, recurrent episode, moderate Generalized anxiety disorder (CMS/HCC) Generalized anxiety disorder DDD (degenerative disc disease), lumbar Degeneration of lumbar or lumbosacral intervertebral disc DDD (degenerative disc disease), lumbar Degeneration of lumbar or lumbosacral intervertebral disc documented in this encounter [facility]* Diagnosis Testicular hypofunction Other testicular hypofunction documented in this encounter [facility]* Diagnosis DDD (degenerative disc disease), lumbar Degeneration of lumbar or lumbosacral intervertebral disc documented in this encounter [facility]* Diagnosis DDD (degenerative disc disease), lumbar Degeneration of lumbar or lumbosacral intervertebral disc documented in this encounter [facility]* Diagnosis Annual physical exam- Primary Routine general medical examination at a health care facility Major depressive disorder, recurrent episode, moderate (CMS/HCC) Major depressive disorder, recurrent episode, moderate Generalized anxiety disorder (CMS/HCC) Generalized anxiety disorder DDD (degenerative disc disease), lumbar Degeneration of lumbar or lumbosacral intervertebral disc Testicular hypofunction Other testicular hypofunction documented in this encounter [facility]* Diagnosis Annual physical exam- Primary Routine general medical examination at a health care facility Major depressive disorder, recurrent episode, moderate (CMS/HCC) Major depressive disorder, recurrent episode, moderate Generalized anxiety disorder (CMS/HCC) Generalized anxiety disorder DDD (degenerative disc disease), lumbar Degeneration of lumbar or lumbosacral intervertebral disc Major depressive disorder, recurrent episode, moderate (CMS/HCC)- Primary Major depressive disorder, recurrent episode, moderate Generalized anxiety disorder (CMS/HCC) Generalized anxiety disorder Adult hypothyroidism (CMS/HCC) Unspecified hypothyroidism Degeneration of intervertebral disc of lumbar region with discogenic back pain and lower extremity pain Paroxysmal atrial fibrillation (CMS/HCC) Atrial fibrillation Paroxysmal SVT (supraventricular tachycardia) (CMS/HCC) documented in this encounter [facility]* Diagnosis Annual physical exam- Primary Routine general medical examination at a health care facility Major depressive disorder, recurrent episode, moderate (CMS/HCC) Major depressive disorder, recurrent episode, moderate Generalized anxiety disorder (CMS/HCC) Generalized anxiety disorder DDD (degenerative disc disease), lumbar Degeneration of lumbar or lumbosacral intervertebral disc Major depressive disorder, recurrent episode, moderate (CMS/HCC)- Primary Major depressive disorder, recurrent episode, moderate Generalized anxiety disorder (CMS/HCC) Generalized anxiety disorder Adult hypothyroidism (CMS/HCC) Unspecified hypothyroidism Degeneration of intervertebral disc of lumbar region with discogenic back pain and lower extremity pain Paroxysmal atrial fibrillation (CMS/HCC) Atrial fibrillation Paroxysmal SVT (supraventricular tachycardia) (CMS/HCC) Major depressive disorder, recurrent episode, moderate (CMS/HCC) Major depressive disorder, recurrent episode, moderate documented in this encounter [facility] HealthcareEvaluation note* Diagnosis Annual physical exam- Primary Routine general medical examination at a health care facility Major depressive disorder, recurrent episode, moderate (CMS/HCC) Major depressive disorder, recurrent episode, moderate Generalized anxiety disorder (CMS/HCC) Generalized anxiety disorder DDD (degenerative disc disease), lumbar Degeneration of lumbar or lumbosacral intervertebral disc Major depressive disorder, recurrent episode, moderate (CMS/HCC)- Primary Major depressive disorder, recurrent episode, moderate Generalized anxiety disorder (CMS/HCC) Generalized anxiety disorder Adult hypothyroidism (CMS/HCC) Unspecified hypothyroidism Degeneration of intervertebral disc of lumbar region with discogenic back pain and lower extremity pain Paroxysmal atrial fibrillation (CMS/HCC) Atrial fibrillation Paroxysmal SVT (supraventricular tachycardia) (CMS/HCC) Major depressive disorder, recurrent episode, moderate (CMS/HCC)- Primary Major depressive disorder, recurrent episode, moderate Generalized anxiety disorder (CMS/HCC) Generalized anxiety disorder Acute bronchitis due to other specified organisms documented in this encounter [facility]* Diagnosis Annual physical exam- Primary Routine general medical examination at a health care facility Major depressive disorder, recurrent episode, moderate (CMS/HCC) Major depressive disorder, recurrent episode, moderate Generalized anxiety disorder (CMS/HCC) Generalized anxiety disorder DDD (degenerative disc disease), lumbar Degeneration of lumbar or lumbosacral intervertebral disc Major depressive disorder, recurrent episode, moderate (CMS/HCC)- Primary Major depressive disorder, recurrent episode, moderate Generalized anxiety disorder (CMS/HCC) Generalized anxiety disorder Adult hypothyroidism (CMS/HCC) Unspecified hypothyroidism Degeneration of intervertebral disc of lumbar region with discogenic back pain and lower extremity pain Paroxysmal atrial fibrillation (CMS/HCC) Atrial fibrillation Paroxysmal SVT (supraventricular tachycardia) (CMS/HCC) Major depressive disorder, recurrent episode, moderate (CMS/HCC)- Primary Major depressive disorder, recurrent episode, moderate Generalized anxiety disorder (CMS/HCC) Generalized anxiety disorder Acute bronchitis due to other specified organisms DDD (degenerative disc disease), lumbar Degeneration of lumbar or lumbosacral intervertebral disc documented in this encounter [facility] HealthcareEvaluation note* Diagnosis Annual physical exam- Primary Routine general medical examination at a health care facility Major depressive disorder, recurrent episode, moderate (CMS/HCC) Major depressive disorder, recurrent episode, moderate Generalized anxiety disorder (CMS/HCC) Generalized anxiety disorder DDD (degenerative disc disease), lumbar Degeneration of lumbar or lumbosacral intervertebral disc Major depressive disorder, recurrent episode, moderate (CMS/HCC)- Primary Major depressive disorder, recurrent episode, moderate Generalized anxiety disorder (CMS/HCC) Generalized anxiety disorder Adult hypothyroidism (CMS/HCC) Unspecified hypothyroidism Degeneration of intervertebral disc of lumbar region with discogenic back pain and lower extremity pain Paroxysmal atrial fibrillation (CMS/HCC) Atrial fibrillation Paroxysmal SVT (supraventricular tachycardia) (CMS/HCC) Major depressive disorder, recurrent episode, moderate (CMS/HCC)- Primary Major depressive disorder, recurrent episode, moderate Generalized anxiety disorder (CMS/HCC) Generalized anxiety disorder Acute bronchitis due to other specified organisms Major depressive disorder, recurrent episode, moderate (CMS/HCC)- Primary Major depressive disorder, recurrent episode, moderate Generalized anxiety disorder (CMS/HCC) Generalized anxiety disorder Degeneration of intervertebral disc of lumbar region with discogenic back pain and lower extremity pain Persistent insomnia Adult hypothyroidism (CMS/HCC) Unspecified hypothyroidism documented in this encounter [facility] Healthcare Summary Purpose Family History No Family History Records FoundNo Family History Records FoundNo Family History Records FoundNo Family History Records FoundNo Family History Records FoundNo Family History Records FoundNo Family History Records FoundNo Family History Records Found Advance Directives No Advanced Directives Records Found Advance Directive Response Recorded Date/ Time Advance Directives No July 29 8:17pm Chief Complaint and Reason for Visit Chief Complaint suicidal Additional Source Comments (unrecognized sect ion and content) No Status Records FoundNo Status Records FoundNo Status Records FoundNo Status Records FoundNo Status Records FoundNo Status Records FoundNo Status Records FoundNo Status Records Found INFORMATION SOURCE (unrecogn ized section and content) DATE CREATED AUTHOR 10/31/2020 [facility] DATE CREATED AUTHOR AUTHOR'S ORGANIZ ATION 08/23/2021 [facility] DATE CREATED AUTHOR AUTHOR'S ORGANIZ ATION 07/08/2022 [facility] DATE CREATED AUTHOR AUTHOR'S ORGANIZ ATION 12/22/2022 [facility] DATE CREATED AUTHOR AUTHOR'S ORGANIZ ATION 12/23/2023 [facility] DATE CREATED AUTHOR AUTHOR'S ORGANIZ ATION 02/09/2024 [facility] DATE CREATED AUTHOR AUTHOR'S ORGANIZ ATION 03/24/2024 [facility] DATE CREATED AUTHOR AUTHOR'S ORGANIZ ATION 05/01/2024 [facility] EPIC REASON FOR VISIT (unrecogniz ed section and content) Reason Onset Date Comments Med Refill 01/10/2024 Reason Onset Date Comments Med Refill 02/09/2024 Reason Comments Med Refill Reason Onset Date Comments Med Refill 11/01/2023 Reason Onset Date Comments Med Refill 12/02/2023 Reason Comments Follow-up Reason Comments Follow-up Medication adjustmen t Cold for about a month Reason Onset Date Comments Med Refill 04/11/2024 Care Teams (unrecognized sec tion and content) Team Status: Active Member Role Status Dates Landon Galvez MD Primary Care Provider Active Team Status: Inactive Member Role Status Dates Landon Galvez MD Primary Care Provider Active S tart: December 12, 2023 End: December 12, 2023 Rodo Prado DO Emergency Provider Active St art: December 12, 2023 End: December 12, 2023 Programming Instructor Relationship Specialty Start Date End Date Landon Galvez MD [address] [place] [address] PCP - General Family Medicine 09/29/22 Programming Instructor Relationship Specialty Start Date End Date Landon Galvez MD [address] [place] [address] PCP - General Family Medicine 09/29/22 Programming Instructor Relationship Specialty Start Date End Date Landon Galvez MD [address] [place] [address] PCP - General Family Medicine 09/29/22 Programming Instructor Relationship Specialty Start Date End Date Landon Galvez MD [address] [place] [phone] PCP - General Family Medicine 09/29/22 Programming Instructor Relationship Specialty Start Date End Date Landon Galvez MD [address] [place] [address] PCP - General Family Medicine 09/29/22 Programming Instructor Relationship Specialty Start Date End Date Landon Galvez MD [address] [place] [phone] PCP - General Family Medicine 09/29/22 Programming Instructor Relationship Specialty Start Date End Date Landon Galvez MD [address] [place] [address] PCP - General Family Medicine 09/29/22 Programming Instructor Relationship Specialty Start Date End Date Landon Galvez MD [address] [place] [phone] PCP - General Family Medicine 09/29/22 Programming Instructor Relationship Specialty Start Date End Date Landon Galvez MD [address] [place] [address] PCP - General Family Medicine 09/29/22 Programming Instructor Relationship Specialty Start Date End Date Landon Galvez MD [address] [place] [address] PCP - General Family Medicine 09/29/22 Programming Instructor Relationship Specialty Start Date End Date Landon Galvez MD [address] [place] [address] PCP - General Family Medicine 09/29/22 Goals (unrecognized section and content) Goals may be documented in a n alternate section FOR RECORDS PERTAINING TO PATIENTS WHO ARE OR HAVE BEEN ENROLLED IN A CHEMICAL DEPENDENCY/SUBSTANCEABUSE PROGRAM, SOME INFORMATION MAY BE OMITTED. This clinical summary was aggregated from multiple sources. Caution should be exercised in using it in the provision of clinical care. This summary normalizes information from multiple sources, and as a consequence, information in this document may materially change the coding, format and clinical context of patient data. In addition, data may be omitted in some cases. CLINICAL DECISIONS SHOULD BE BASED ON THE PRIMARY CLINICAL RECORDS. [employer] [facility]. provides no warranty or guarantee of the accuracy or completeness of information in this document.
[2024-05-03 16:12] LABS: Free T4 1.13 ng/dL (0.76-1.46)
[2024-05-03 16:18] LABS: Free T3 3.02 pg/mL (2.18-3.98); Thyroid Stimulating Hormone 1.364 uIU/mL (0.358-3.740)
== END 2024-05-03 15:09 | disposition home or self-care (01) ==
LOC: LAB 15:09
PROVIDERS: PCP Family Medicine; Visit Provider Family Medicine
DX: E03.9 Hypothyroidism, unspecified (principal)
CPT/HCPCS: 36415; 84439; 84443; 84481